=== PATIENT | male | born 1945 | race African-American/Black ===

== ENCOUNTER 2018-01-01 20:18 | Inpatient (IN) | payer MEDICARE, OTHER ==
[~2018-01-01] VITALS: Ht 170.2 cm; Wt 62.8 kg
[2018-01-01 21:00] VITALS: BP 113/91
[2018-01-01 21:06] LABS: BASOPHILS % (AUTO) 1.2 % (0.0-2.0); EOSINOPHILS % (AUTO) 1.7 % (0.0-3.0); HEMATOCRIT 49.3 % (42.0-52.0); HEMOGLOBIN 16.4 G/DL (14.2-18.0); LYMPHOCYTES % (AUTO) 20.9 % (20.0-45.0); MEAN CORPUSCULAR VOLUME 91 FL (80-99); MONOCYTES % (AUTO) 8.2 % (1.0-10.0); PLATELET COUNT 167 K/UL (150-450); RED BLOOD COUNT 5.43 M/UL (4.70-6.10); RED CELL DISTRIBUTION WIDTH 13.6 % (11.6-14.8); WHITE BLOOD COUNT 4.5 K/UL (4.8-10.8)
[2018-01-01] MEDS ORDERED: NS 1000ml 1,900 ML IVLG ONE (21:15)
[2018-01-01] MEDS ORDERED: cefTRIAXone 1 GM in NS 55 ML IVPB ONE (21:15)
[2018-01-01 21:20] LABS: ANION GAP 14 mmol/L (5-15); BLOOD UREA NITROGEN 58 mg/dL (7-18); CALCIUM 10.6 MG/DL (8.5-10.1); CARBON DIOXIDE 26 MMOL/L (21-32); CHLORIDE 107 MMOL/L (98-107); CREATININE 1.2 MG/DL (0.55-1.30); POTASSIUM 4.1 MMOL/L (3.5-5.1); SODIUM 147 MMOL/L (136-145)
[2018-01-01 21:34] LABS: ALBUMIN 3.6 G/DL (3.4-5.0); CKMB 0.9 NG/ML (0.0-3.6)
[2018-01-01 22:16] LABS: ALANINE AMINOTRANSFERASE 29 U/L (12-78); ALKALINE PHOSPHATASE 84 U/L (46-116); ASPARTATE AMINO TRANSFERASE 48 U/L (15-37); BILIRUBIN,TOTAL 1.2 MG/DL (0.2-1.0); CREATINE KINASE 72 U/L (26-308)
[2018-01-01 22:31] LABS: ALBUMIN/GLOBULIN RATIO 0.4 (1.0-2.7)
[2018-01-01 22:32] LABS: BILIRUBIN,DIRECT 0.2 MG/DL (0.0-0.3)
--- NOTE | 2018-01-01 22:44 | Emergency Room Report ---
History of Present Illness General Chief Complaint: Altered Level of Consciousness Source: Patient, EMS Present Illness HPI Presents by EMS. Apparently he his friend had called EMS. He had generalized weakness for the past day. His friend states he is also concerned that he was altered. Unfortunately, the friend was not here to give this history. The patient denies pain. He denies recent illness. He denies fever or chills. He denies nausea or vomiting. He denies chest pain or shortness of breath. He has no other complaints. Allergies: Coded Allergies: No Known Allergies (Unverified , 01/01/18) Patient History Past Medical History: see triage record, HIV Social History: Denies: smoking, alcohol use, drug use Reviewed Nursing Documentation: PMH: Agreed; PSxH: Agreed Review of Systems All Other Systems: negative except mentioned in HPI Physical Exam Vital Signs Date Time Temp Pulse Resp B/P (MAP) Pulse Ox O2 Delivery O2 Flow Rate FiO2 01/01/18 20:15 120 16 111/77 99 Room Air 01/01/18 21:00 98.1 98.1 Sp02 EP Interpretation: reviewed, normal General Appearance: no apparent distress, alert, GCS 15, non-toxic Head: normocephalic, atraumatic Eyes: bilateral eye normal inspection, bilateral eye PERRL ENT: hearing grossly normal, normal pharynx, no angioedema, normal voice Neck: full range of motion, supple/symm/no masses Respiratory: chest non-tender, lungs clear, normal breath sounds, no respiratory distress, no retraction, no accessory muscle use, speaking full sentences Cardiovascular #1: no edema, tachycardia Gastrointestinal: normal bowel sounds, non tender, soft, non-distended, no guarding, no rebound Rectal: deferred Musculoskeletal: back normal, normal range of motion, swelling - BLE Neurologic: alert, oriented x3, responsive, sensory intact, speech normal, other - Generalized weakness, non-focal Psychiatric: judgement/insight normal, memory normal, mood/affect normal, no suicidal/homicidal ideation Skin: normal color, warm/dry Medical Decision Making Diagnostic Impression: Primary Impression: Dehydration Additional Impressions: Failure to thrive in adult Hypernatremia ER Course This patient is very dehydrated. He has dry mucous membranes as tachycardic. He is also found to be hypernatremic and azotemic. Patient was given IV fluids. He is very cachectic and frail. I'm concerned that this patient may need to be in a detention facility. He is gravely disabled and unable to care for himself. He is admitted for further evaluation and treatment. Laboratory Tests Test 01/01/18 20:50 White Blood Count 4.5 K/UL (4.8-10.8) L Red Blood Count 5.43 M/UL (4.70-6.10) Hemoglobin 16.4 G/DL (14.2-18.0) Hematocrit 49.3 % (42.0-52.0) Mean Corpuscular Volume 91 FL (80-99) Mean Corpuscular Hemoglobin 30.3 PG (27.0-31.0) Mean Corpuscular Hemoglobin Concent 33.3 G/DL (32.0-36.0) Red Cell Distribution Width 13.6 % (11.6-14.8) Platelet Count 167 K/UL (150-450) Mean Platelet Volume 9.1 FL (6.5-10.1) Neutrophils (%) (Auto) 68.0 % (45.0-75.0) Lymphocytes (%) (Auto) 20.9 % (20.0-45.0) Monocytes (%) (Auto) 8.2 % (1.0-10.0) Eosinophils (%) (Auto) 1.7 % (0.0-3.0) Basophils (%) (Auto) 1.2 % (0.0-2.0) Prothrombin Time 10.6 SEC (9.30-11.50) Prothrombin Time INR 1.0 (0.9-1.1) PTT 27 SEC (23-33) Sodium Level 147 MMOL/L (136-145) H Potassium Level 4.1 MMOL/L (3.5-5.1) Chloride Level 107 MMOL/L (98-107) Carbon Dioxide Level 26 MMOL/L (21-32) Anion Gap 14 mmol/L (5-15) Blood Urea Nitrogen 58 mg/dL (7-18) H Creatinine 1.2 MG/DL (0.55-1.30) Estimate Glomerular Filtration Rate mL/min (>60) Glucose Level 106 MG/DL (74-106) Calcium Level 10.6 MG/DL (8.5-10.1) H Total Bilirubin 1.2 MG/DL (0.2-1.0) H Direct Bilirubin 0.2 MG/DL (0.0-0.3) Aspartate Amino Transferase (AST) 48 U/L (15-37) H Alanine Aminotransferase (ALT) 29 U/L (12-78) Alkaline Phosphatase 84 U/L (46-116) Total Creatine Kinase 72 U/L (26-308) Creatine Kinase MB 0.9 NG/ML (0.0-3.6) Creatine Kinase MB Relative Index 1.2 Troponin I 0.047 ng/mL (0.000-0.056) Total Protein 12.5 G/DL (6.4-8.2) H Albumin 3.6 G/DL (3.4-5.0) Globulin 8.9 g/dL Albumin/Globulin Ratio 0.4 (1.0-2.7) L EKG Diagnostic Results Rate: tachycardiac Rhythm: other - S.tachycardia ST Segments: no acute changes Other Impression Bifasicular block Rhythm Strip Diag. Results EP Interpretation: yes Rate: 120's Rhythm: no PVC's, no ectopy, other - S.tachycardia Chest X-Ray Diagnostic Results Chest X-Ray Diagnostic Results : Chest X-Ray Ordered: Yes # of Views/Limited/Complete: 1 View Indication: Other EP Interpretation: Yes Interpretation: no consolidation, no effusion, no pneumothorax, no acute cardiopulmonary disease Impression: No acute disease Electronically Signed by: Dyan CT/MRI/US Diagnostic Results CT/MRI/US Diagnostic Results : Imaging Test Ordered: CT head Impression No acute findings. See official report. Last Vital Signs Date Time Temp Pulse Resp B/P (MAP) Pulse Ox O2 Delivery O2 Flow Rate FiO2 01/01/18 21:00 98.1 124 16 113/91 99 Room Air 98.1 Disposition: ADMITTED INPATIENT Condition: Serious Referrals: NOT CHOSEN IPA/,REFERRING (PCP) SEJAL SON D.O. Jan 01, 2018 22:44
[2018-01-01 23:00] VITALS: BP 137/93
[2018-01-02 00:44] VITALS: BP 133/99
[2018-01-02 01:20] VITALS: BP 131/94
[2018-01-02 08:00] VITALS: BP 121/79
--- NOTE | 2018-01-02 08:55 | History & Physical ---
History and Physical History & Physicial patient seen and examined. Dictation completed Brandy Phelps MD Jan 02, 2018 08:55
[2018-01-02] MEDS: Heparin 5000 units/ml inj SUBQ SCH ×2 (09:00→21:30)
[2018-01-02 09:09] LABS: BASOPHILS % (AUTO) 0.9 % (0.0-2.0); EOSINOPHILS % (AUTO) 1.3 % (0.0-3.0); HEMATOCRIT 38.5 % (42.0-52.0); HEMOGLOBIN 13.1 G/DL (14.2-18.0); LYMPHOCYTES % (AUTO) 7.8 % (20.0-45.0); MEAN CORPUSCULAR VOLUME 92 FL (80-99); MONOCYTES % (AUTO) 12.2 % (1.0-10.0); NEUTROPHILS % (AUTO) 77.8 % (45.0-75.0); PLATELET COUNT 150 K/UL (150-450); RED BLOOD COUNT 4.19 M/UL (4.70-6.10); RED CELL DISTRIBUTION WIDTH 13.4 % (11.6-14.8); WHITE BLOOD COUNT 7.9 K/UL (4.8-10.8)
[2018-01-02 09:41] LABS: ALANINE AMINOTRANSFERASE 16 U/L (12-78); ALBUMIN 2.6 G/DL (3.4-5.0); ALBUMIN/GLOBULIN RATIO 0.4 (1.0-2.7); ALKALINE PHOSPHATASE 65 U/L (46-116); ANION GAP 12 mmol/L (5-15); ASPARTATE AMINO TRANSFERASE 31 U/L (15-37); BILIRUBIN,TOTAL 0.9 MG/DL (0.2-1.0); BLOOD UREA NITROGEN 52 mg/dL (7-18); CALCIUM 9.5 MG/DL (8.5-10.1); CARBON DIOXIDE 22 MMOL/L (21-32); CHLORIDE 116 MMOL/L (98-107); CREATININE 1.1 MG/DL (0.55-1.30); POTASSIUM 3.5 MMOL/L (3.5-5.1); SODIUM 150 MMOL/L (136-145)
[2018-01-02 10:00] LABS: CHOLESTEROL 123 MG/DL (< 200); HDL CHOLESTEROL 37 MG/DL (40-60); TRIGLYCERIDES 78 MG/DL (30-150)
--- NOTE | 2018-01-02 10:11 | Diagnostic Imaging Report ---
Indication: Altered mental status Technique: Contiguous 5 mm thick transaxial imaging of the head obtained in a Siemens Sensation [address] scanner. Soft tissue and bone windows generated. Automatic Exposure Control was utilized. Total Dose length Product (DLP): [address] Dose Index Volume (CTDIvol): 0.15, 70.38 mGy Comparison: none Findings: There is mild prominence of the ventricles, basal cisterns, and cerebral sulci consistent with atrophy. Mild, nonspecific, white matter hypoattenuation is noted throughout the brain consistent with chronic small vessel disease. There is no midline shift, edema, acute hemorrhage, mass effect, or abnormal extra-axial fluid collections. Bones and extra osseous soft tissues are unremarkable. Impression: No acute intracranial bleed, mass effect or edema. Mild atrophy of the brain. Nonspecific white matter hypoattenuation probably due to chronic small vessel disease. [facility] has communicated the preliminary results to the Emergency Department. Their findings are largely concordant with this report. The CT scanner at [facility] is accredited by the [employer] and the scans are performed using dose optimization techniques as appropriate to a performed exam including Automatic Exposure control.
--- NOTE | 2018-01-02 11:34 | Diagnostic Imaging Report ---
Indication: Dyspnea Comparison: None A single view chest radiograph was obtained. Findings: Cardiomediastinal appearance is within normal limits for age. Pulmonary vascularity is appropriate. The diaphragmatic contour is smooth and costophrenic angles are sharp. No pleural effusions are identified. The bones are osteopenic. Impression: No acute findings
--- NOTE | 2018-01-02 11:58 | Consultation ---
Consult Note Consult Note asked to eval for renal failure [facility] Complaint: Altered Level of Consciousness Presents by EMS. Apparently he his friend had called EMS. He had generalized weakness for the past day. His friend states he is also concerned that he was altered. Unfortunately, the friend was not here to give this history. The patient denies pain. He denies recent illness. He denies fever or chills. He denies nausea or vomiting. He denies chest pain or shortness of breath. He has no other complaints. examined- data reviewed . Assessment/Plan Dehydration , hemoconcentration leading to high Hgb and Calcium Failure to thrive in adult Hypernatremia HypoAlbuminemia Anemia high troponin I Plan: IV to D5w 100 cc hour gastric support monitor lytes and renal parameters 2D echo nitro TALAT Dyer Jan 02, 2018 11:58
[2018-01-02 12:00] VITALS: BP 140/69
--- NOTE | 2018-01-02 13:00 | History and Physical Report ---
DATE OF ADMISSION: 01/01/2018 SOURCE OF INFORMATION: EMR. HISTORY OF PRESENT ILLNESS: The patient is a 72-year-old male, who was transferred at the request of his roommate. The patient is poor historian. He is delirious, therefore this is limited source of information. Per the ER note, the patient's friend/roommate has been consulted regarding the changes in his level of consciousness for the patient. The patient had been found to have couple of sacral wounds with multiple At the time of evaluation, the patient is AO x1. Poor historian. FAMILY HISTORY: Unobtainable. REVIEW OF SYSTEMS: Limited, however, negative for chest pain. Negative for shortness of breath. Negative for seizure activity. Negative for bleeding. SOCIAL HISTORY: Unknown. ALLERGIES: NKDA. MEDICATIONS: Current hospital medications including but not limited to heparin subcutaneous 5000 b.i.d., Protonix PHYSICAL EXAMINATION: VITAL SIGNS: Blood pressure 140/80, temperature 98.2, respiratory rate 18, pulse oximetry 100% on room air. HEAD AND NECK: Atraumatic and normocephalic. CHEST: Clear to auscultation. No wheezing. No crackles. HEART: S1 and S2. Regular rate and rhythm. Tachycardic. ABDOMEN: Soft. No organomegaly. MUSCULOSKELETAL: Atrophied musculature. No edema. NEUROLOGIC: Awake and alert x1. LABORATORY DATA: On 01/01/2018, WBC 4.5, hemoglobin 16.4, platelet of 167,000. Sodium 147, potassium 4.1, BUN 58, creatinine 1.2, total bilirubin of 1.2, AST of 48, and total protein of 12.5. ASSESSMENT: 1. Acute encephalopathy. 2. Dehydration. 3. Hypernatremia. 4. Abnormal LFT. 5. Hyperproteinemia. 6. Lack of capacity of making medical decisions. 7. GI and DVT prophylaxis. PLAN OF CARE: We will continue with hydration. We will obtain abdominal ultrasound. grey roll worker to locate next of kin. Okay to restrain. Psychiatric to evaluate the capacity for making decisions. Brandy Phelps M.D. DR: Emiliana JOB#: [id number] CC: MAC
--- NOTE | 2018-01-02 13:23 | Cardiac Electrophysiology PN ---
Subjective Subjective [id number]. HIV, Tachy, troponin leak, Dehydration. DW RN Objective Last 24 Hour Vital Signs Date Time Temp Pulse Resp B/P (MAP) Pulse Ox O2 Delivery O2 Flow Rate FiO2 01/02/18 08:00 123 01/02/18 08:00 97.9 106 20 121/79 96 Room Air 97.9 01/02/18 04:00 124 01/02/18 02:00 125 01/02/18 01:20 98.1 120 22 131/94 99 Room Air 98.1 01/02/18 01:10 98.2 119 16 133/99 100 Room Air 98.2 01/02/18 00:44 98.2 119 16 133/99 100 Room Air 98.2 01/01/18 23:00 98.7 115 18 137/93 99 Room Air 98.7 01/01/18 21:00 98.1 124 16 113/91 99 Room Air 98.1 01/01/18 20:15 120 16 111/77 99 Room Air Intake and Output 01/01/18 01/02/18 19:00 07:00 Intake Total 0 ml Balance 0 ml Intake Oral 0 ml Laboratory Tests Test 01/01/18 20:50 01/02/18 00:15 01/02/18 08:40 White Blood Count 4.5 K/UL (4.8-10.8) L 7.9 K/UL (4.8-10.8) # Red Blood Count 5.43 M/UL (4.70-6.10) 4.19 M/UL (4.70-6.10) L Hemoglobin 16.4 G/DL (14.2-18.0) 13.1 G/DL (14.2-18.0) L Hematocrit 49.3 % (42.0-52.0) 38.5 % (42.0-52.0) L Mean Corpuscular Volume 91 FL (80-99) 92 FL (80-99) Mean Corpuscular Hemoglobin 30.3 PG (27.0-31.0) 31.4 PG (27.0-31.0) H Mean Corpuscular Hemoglobin Concent 33.3 G/DL (32.0-36.0) 34.1 G/DL (32.0-36.0) Red Cell Distribution Width 13.6 % (11.6-14.8) 13.4 % (11.6-14.8) Platelet Count 167 K/UL (150-450) 150 K/UL (150-450) Mean Platelet Volume 9.1 FL (6.5-10.1) 10.1 FL (6.5-10.1) Neutrophils (%) (Auto) 68.0 % (45.0-75.0) 77.8 % (45.0-75.0) H Lymphocytes (%) (Auto) 20.9 % (20.0-45.0) 7.8 % (20.0-45.0) L Monocytes (%) (Auto) 8.2 % (1.0-10.0) 12.2 % (1.0-10.0) H Eosinophils (%) (Auto) 1.7 % (0.0-3.0) 1.3 % (0.0-3.0) Basophils (%) (Auto) 1.2 % (0.0-2.0) 0.9 % (0.0-2.0) Prothrombin Time 10.6 SEC (9.30-11.50) Prothromb Time International Ratio 1.0 (0.9-1.1) Activated Partial Thromboplast Time 27 SEC (23-33) Sodium Level 147 MMOL/L (136-145) H 150 MMOL/L (136-145) H Potassium Level 4.1 MMOL/L (3.5-5.1) 3.5 MMOL/L (3.5-5.1) Chloride Level 107 MMOL/L (98-107) 116 MMOL/L (98-107) H Carbon Dioxide Level 26 MMOL/L (21-32) 22 MMOL/L (21-32) Anion Gap 14 mmol/L (5-15) 12 mmol/L (5-15) Blood Urea Nitrogen 58 mg/dL (7-18) H 52 mg/dL (7-18) H Creatinine 1.2 MG/DL (0.55-1.30) 1.1 MG/DL (0.55-1.30) Estimat Glomerular Filtration Rate mL/min (>60) mL/min (>60) Glucose Level 106 MG/DL (74-106) 98 MG/DL (74-106) Calcium Level 10.6 MG/DL (8.5-10.1) H 9.5 MG/DL (8.5-10.1) Total Bilirubin 1.2 MG/DL (0.2-1.0) H 0.9 MG/DL (0.2-1.0) Direct Bilirubin 0.2 MG/DL (0.0-0.3) Aspartate Amino Transf (AST/SGOT) 48 U/L (15-37) H 31 U/L (15-37) Alanine Aminotransferase (ALT/SGPT) 29 U/L (12-78) 16 U/L (12-78) Alkaline Phosphatase 84 U/L (46-116) 65 U/L (46-116) Total Creatine Kinase 72 U/L (26-308) Creatine Kinase MB 0.9 NG/ML (0.0-3.6) Creatine Kinase MB Relative Index 1.2 Troponin I 0.047 ng/mL (0.000-0.056) 0.072 ng/mL (0.000-0.056) Total Protein 12.5 G/DL (6.4-8.2) H 9.5 G/DL (6.4-8.2) H Albumin 3.6 G/DL (3.4-5.0) 2.6 G/DL (3.4-5.0) L Globulin 8.9 g/dL 6.9 g/dL Albumin/Globulin Ratio 0.4 (1.0-2.7) L 0.4 (1.0-2.7) L Ammonia 14 umol/L (11-32) Hemoglobin A1c 5.4 % (4.3-6.0) C-Reactive Protein, Quantitative 2.9 mg/dL (0.00-0.90) H Triglycerides Level 78 MG/DL (30-150) Cholesterol Level 123 MG/DL (< 200) LDL Cholesterol 82 mg/dL (<100) HDL Cholesterol 37 MG/DL (40-60) L Cholesterol/HDL Ratio 3.3 (3.3-4.4) Harris Pike MD Jan 02, 2018 13:23
[2018-01-02] MEDS: Aspirin Baby 81mg ORAL SCH (13:31)
[2018-01-02] MEDS: Nitroglycerin Patch 0.4mg TDERMAL SCH (13:33)
[2018-01-02] MEDS ORDERED: Haloperidol 5mg/ml Inj IM PRN ×2 (14:45→17:00)
[2018-01-02] MEDS ORDERED: LORazepam Inj 2mg/ml 1ml IM PRN ×2 (14:45→17:00)
[2018-01-02 16:00] VITALS: BP 117/75
[2018-01-02 20:00] VITALS: BP 128/76
--- NOTE | 2018-01-02 23:15 | Consultation ---
DATE OF CONSULTATION: 01/02/2018 CARDIOLOGY CONSULTATION REFERRING PHYSICIAN: Brandy Phelps M.D. REASON FOR CONSULTATION: Lower extremity edema, tachycardia, and elevated troponin. HISTORY OF PRESENT ILLNESS: The patient is a 72-year-old , homeless gentleman, who was brought in to the hospital for altered level of consciousness. The patient denied any chest pain or shortness of breath. However, had elevated troponin with bilateral lower extremity edema. The patient was felt to be also tachycardic, dehydrated, cachectic, and very frail. The patient was started on IV fluid and a Cardiology consultation was obtained for further evaluation and management. PAST MEDICAL HISTORY: As mentioned above. SOCIAL HISTORY: smoker, drinking alcohol, and using IV drugs. FAMILY HISTORY: Noncontributory. REVIEW OF SYSTEMS: Negative other than what was mentioned in the history of present illness. PHYSICAL EXAMINATION: VITAL SIGNS: Show blood pressure of 121/79, pulse 120, respirations 18, and he is afebrile. HEAD AND NECK: Shows no JVD. LUNGS: Clear. CARDIOVASCULAR: Shows tachycardic. S1 and S2 with no gallop or murmur. ABDOMEN: Soft. EXTREMITIES: A 1+ pitting edema. LABORATORY AND DIAGNOSTIC DATA: His EKG showed sinus tachycardia with right bundle-branch block and left ventricular hypertrophy and repolarization abnormality. His labs show white count 7.9, hemoglobin 13.1, hematocrit 38.5, and platelet count of 150,000. Sodium 150, potassium 3.5, BUN of 52, creatinine 1.1, and glucose of 98. Troponin of 0.047 and 0.072. ASSESSMENT AND PLAN: 1. Troponin elevation. The first troponin was negative. Second troponin is mildly elevated. This is likely due to the patient's renal failure with sodium 150 and BUN and creatinine of 52/1.1. The patient will be hydrated. Hopefully, we will also get an echocardiogram to evaluate for ejection fraction and wall motion abnormality. 2. Tachycardia due to sinus tachycardia with no evidence of atrial fibrillation likely due to dehydration. 3. Hypernatremia and azotemia on intravenous fluids per Dr. Phelps. 4. Human immunodeficiency virus positive. Thank you very much, Dr. Phepls for allowing me to participate in the care of this patient. Please do not hesitate to contact me for any questions regarding my evaluation. Harris Pike M.D. DR: Terell JOB#: [id number] CC:
[2018-01-03] VITALS: BP 91/58
[2018-01-03 04:00] VITALS: BP 95/58
--- NOTE | 2018-01-03 07:28 | General Progress Note ---
Assessment/Plan Status: stable Assessment/Plan 1. Acute encephalopathy. 2. abnormal Troponin 3. Hypernatremia. 4. Abnormal LFT. 5. Hyperproteinemia. 6. Lack of capacity of making medical decisions. 7. GI and DVT prophylaxis. Plan: Restrain PRN, follow Psych input Current IV fluid follow Trop trend pending echo check BNP Subjective ROS Limited/Unobtainable: Yes - lethargic Allergies: Coded Allergies: No Known Allergies (Unverified , 01/01/18) Objective Last 24 Hour Vital Signs Date Time Temp Pulse Resp B/P (MAP) Pulse Ox O2 Delivery O2 Flow Rate FiO2 01/03/18 04:00 98.0 118 17 95/58 97 Room Air 98.0 01/03/18 04:00 115 01/03/18 00:00 111 01/03/18 00:00 98.0 115 16 91/58 99 Room Air 98.0 01/02/18 20:00 97.6 82 16 128/76 96 Room Air 97.6 01/02/18 20:00 112 01/02/18 18:44 116 01/02/18 16:00 97.3 117 21 117/75 99 Room Air 97.3 01/02/18 13:33 140/69 01/02/18 12:00 97.7 79 20 140/69 97 Room Air 97.7 01/02/18 08:00 123 01/02/18 08:00 97.9 106 20 121/79 96 Room Air 97.9 Intake and Output 01/02/18 01/03/18 19:00 07:00 Intake Total 340 ml 800 ml Balance 340 ml 800 ml Intake Oral 240 ml IV Total 100 ml 800 ml # Voids 2 1 # Bowel Movements 1 Laboratory Tests 01/02/18 08:40: White Blood Count 7.9#, Red Blood Count 4.19L, Hemoglobin 13.1L, Hematocrit 38.5L, Mean Corpuscular Volume 92, Mean Corpuscular Hemoglobin 31.4H, Mean Corpuscular Hemoglobin Concent 34.1, Red Cell Distribution Width 13.4, Platelet Count 150, Mean Platelet Volume 10.1, Neutrophils (%) (Auto) 77.8H, Lymphocytes (%) (Auto) 7.8L, Monocytes (%) (Auto) 12.2H, Eosinophils (%) (Auto) 1.3, Basophils (%) (Auto) 0.9, Sodium Level 150H, Potassium Level 3.5, Chloride Level 116H, Carbon Dioxide Level 22, Anion Gap 12, Blood Urea Nitrogen 52H, Creatinine 1.1, Estimat Glomerular Filtration Rate , Glucose Level 98, Hemoglobin A1c 5.4, Calcium Level 9.5, Total Bilirubin 0.9, Aspartate Amino Transf (AST/SGOT) 31, Alanine Aminotransferase (ALT/SGPT) 16, Alkaline Phosphatase 65, Troponin I 0.072H, C-Reactive Protein, Quantitative 2.9H, Total Protein 9.5H, Albumin 2.6L, Globulin 6.9, Albumin/Globulin Ratio 0.4L, Triglycerides Level 78, Cholesterol Level 123, LDL Cholesterol 82, HDL Cholesterol 37L, Cholesterol/HDL Ratio 3.3 Height (Feet): 5 Height (Inches): 7.00 Weight (Pounds): 140 General Appearance: WD/WN, agitated, cachetic, other EENT: PERRL/EOMI Neck: supple Cardiovascular: normal rate Respiratory/Chest: lungs clear Abdomen: soft Extremities: non-tender, other - atrophied Neurologic: disoriented Brandy Phelps MD Jan 03, 2018 07:28
[2018-01-03 08:00] VITALS: BP 104/70
[2018-01-03 08:23] LABS: BASOPHILS % (AUTO) 0.7 % (0.0-2.0); HEMATOCRIT 34.1 % (42.0-52.0); HEMOGLOBIN 12.1 G/DL (14.2-18.0); LYMPHOCYTES % (AUTO) 16.9 % (20.0-45.0); MEAN CORPUSCULAR VOLUME 91 FL (80-99); MONOCYTES % (AUTO) 14.6 % (1.0-10.0); NEUTROPHILS % (AUTO) 65.9 % (45.0-75.0); PLATELET COUNT 113 K/UL (150-450); RED BLOOD COUNT 3.75 M/UL (4.70-6.10); RED CELL DISTRIBUTION WIDTH 13.4 % (11.6-14.8)
[2018-01-03 08:41] LABS: APPEARANCE,URINE SLIGHTLY CLOUDY; BILIRUBIN, URINE NEGATIVE (NEGATIVE); COLOR,URINE YELLOW; GLUCOSE, URINE (UA) NEGATIVE (NEGATIVE); KETONES,URINE 1+ (NEGATIVE); NITRITE,URINE NEGATIVE (NEGATIVE); PH,URINE 8 (4.5-8.0); PROTEIN,URINE 2+ (NEGATIVE); UROBILINOGEN,URINE NORMAL MG/DL (0.0-1.0)
[2018-01-03 08:42] LABS: LEUKOCYTE ESTERASE ,URINE 3+ (NEGATIVE)
[2018-01-03] MEDS: Heparin 5000 units/ml inj SUBQ SCH ×2 (09:00→20:45)
[2018-01-03 09:22] LABS: ALANINE AMINOTRANSFERASE 22 U/L (12-78); ALBUMIN 2.3 G/DL (3.4-5.0); ALBUMIN/GLOBULIN RATIO 0.4 (1.0-2.7); ALKALINE PHOSPHATASE 54 U/L (46-116); ANION GAP 8 mmol/L (5-15); ASPARTATE AMINO TRANSFERASE 39 U/L (15-37); BILIRUBIN,DIRECT 0.4 MG/DL (0.0-0.3); BILIRUBIN,TOTAL 1.1 MG/DL (0.2-1.0); BLOOD UREA NITROGEN 38 mg/dL (7-18); CARBON DIOXIDE 24 MMOL/L (21-32); CHLORIDE 118 MMOL/L (98-107); CREATINE KINASE 217 U/L (26-308); FERRITIN 873 NG/ML (8-388); GAMMA GLUTAMYL TRANSPEPTIDASE 14 U/L (5-85); PHOSPHORUS 2.9 MG/DL (2.5-4.9); POTASSIUM 3.1 MMOL/L (3.5-5.1); SODIUM 150 MMOL/L (136-145)
[2018-01-03] MEDS: Aspirin Baby 81mg ORAL SCH (09:28)
[2018-01-03 10:03] LABS: % IRON SATURATION 29 % (15-50); IRON 34 ug/dL (50-175); TOTAL IRON BINDING CAPACITY 116 ug/dL (250-450)
--- NOTE | 2018-01-03 11:56 | Diagnostic Imaging Report ---
Indication:Abdominal pain Technique: Grayscale and duplex Doppler imaging of the abdomen performed. Comparison: None Findings: The patient was combative and as such the study is limited. There are tiny cysts in the right kidney measuring less than 1 cm. There is no hydronephrosis. Aorta is normal caliber. CBD is 3 mm. Gallbladder is grossly unremarkable. Liver not well imaged. Pancreas and spleen not well imaged. No free fluid appreciated. IMPRESSION: Limited study. No obvious acute abnormality. Tiny cysts within the right kidney.
[2018-01-03 12:00] VITALS: BP 120/80
[2018-01-03] MEDS ORDERED: Potassium Chloride 40 MEQ in Sodium Chloride 500ML 550 ML IVPB ONE (12:00)
--- NOTE | 2018-01-03 12:33 | Nephrology Progress Note ---
Assessment/Plan Problem List: (1) Dehydration (2) Hypernatremia (3) Failure to thrive in adult (4) Anemia (5) Elevated troponin I level Assessment Dehydration , hemoconcentration leading to high Hgb and Calcium Failure to thrive in adult Hypernatremia HypoAlbuminemia Anemia high troponin I Plan Plan: IV to D5w 100 cc hour gastric support monitor lytes and renal parameters 2D echo nitro asa Subjective ROS Limited/Unobtainable: No Constitutional: Reports: malaise Objective Objective Last 24 Hour Vital Signs Date Time Temp Pulse Resp B/P (MAP) Pulse Ox O2 Delivery O2 Flow Rate FiO2 01/03/18 08:00 98.0 116 17 104/70 98 Room Air 98.0 01/03/18 08:00 117 01/03/18 04:00 98.0 118 17 95/58 97 Room Air 98.0 01/03/18 04:00 115 01/03/18 00:00 111 01/03/18 00:00 98.0 115 16 91/58 99 Room Air 98.0 01/02/18 20:00 97.6 82 16 128/76 96 Room Air 97.6 01/02/18 20:00 112 01/02/18 18:44 116 01/02/18 16:00 97.3 117 21 117/75 99 Room Air 97.3 01/02/18 13:33 140/69 Intake and Output 01/02/18 01/03/18 19:00 07:00 Intake Total 340 ml 800 ml Balance 340 ml 800 ml Intake Oral 240 ml IV Total 100 ml 800 ml # Voids 2 1 # Bowel Movements 1 Laboratory Tests 01/03/18 07:45: White Blood Count 5.0, Red Blood Count 3.75L, Hemoglobin 12.1L, Hematocrit 34.1L , Mean Corpuscular Volume 91, Mean Corpuscular Hemoglobin 32.2H, Mean Corpuscular Hemoglobin Concent 35.4, Red Cell Distribution Width 13.4, Platelet Count 113L, Mean Platelet Volume 9.7, Neutrophils (%) (Auto) 65.9, Lymphocytes ( %) (Auto) 16.9L, Monocytes (%) (Auto) 14.6H, Eosinophils (%) (Auto) 2.0, Basophils (%) (Auto) 0.7, Urine Color Yellow, Urine Appearance Slightly cloudy, Urine pH 8, Urine Specific [place] 1.015, Urine Protein 2+H, Urine Glucose (UA) Negative, Urine Ketones 1+H, Urine Occult Blood 3+H, Urine Nitrite Negative, Urine Bilirubin Negative, Urine Urobilinogen Normal, Urine Leukocyte Esterase 3+ H, Urine RBC 2-4H, Urine WBC 60-80H, Urine Squamous Epithelial Cells Occasional , Urine Bacteria Few, Sodium Level 150H, Potassium Level 3.1L, Chloride Level 118H, Carbon Dioxide Level 24, Anion Gap 8, Blood Urea Nitrogen 38H, Creatinine 1.0, Estimat Glomerular Filtration Rate , Glucose Level 112H, Uric Acid 9.4H, Calcium Level 9.0, Phosphorus Level 2.9, Magnesium Level 2.0, Iron Level 34L, Total Iron Binding Capacity 116L, Percent Iron Saturation 29, Unsaturated Iron Binding 82L, Ferritin 873H, Total Bilirubin 1.1H, Direct Bilirubin 0.4H, Gamma Glutamyl Transpeptidase 14, Aspartate Amino Transf (AST/SGOT) 39H, Alanine Aminotransferase (ALT/SGPT) 22, Alkaline Phosphatase 54, Total Creatine Kinase 217, Troponin I 0.065H, Pro-B-Type Natriuretic Peptide 372H, Total Protein 8.3H , Albumin 2.3L, Globulin 6.0, Albumin/Globulin Ratio 0.4L, Vitamin B12 Level 1008H, Folate 4.2L Height (Feet): 5 Height (Inches): 7.00 Weight (Pounds): 140 TALAT GALVIN Jan 03, 2018 12:33
[2018-01-03] MEDS: Nitroglycerin Patch 0.4mg TDERMAL SCH (13:55)
--- NOTE | 2018-01-03 14:32 | Cardiac Electrophysiology PN ---
Assessment/Plan Assessment/Plan 1. Troponin elevation. The first troponin was negative. second and third ones 0.072/0.065 This is likely due to the patient's renal failure with sodium 150 and BUN and creatinine of 52/1.1. The patient will be hydrated. Echocardiogram showed EF 65% ECG Bifascicular block.No CP 2. Tachycardia due to sinus tachycardia with no evidence of atrial fibrillation likely due to dehydration. 3. RBBB and LAFB. 4. Hypernatremia and azotemia on intravenous fluids per Dr. Phelps. 5. Human immunodeficiency virus positive. KJ RN Subjective Subjective Alert in NAD.No CP. HR in 100s Objective Last 24 Hour Vital Signs Date Time Temp Pulse Resp B/P (MAP) Pulse Ox O2 Delivery O2 Flow Rate FiO2 01/03/18 13:55 120/80 01/03/18 12:00 104 01/03/18 12:00 98.6 104 18 120/80 98 Room Air 98.6 01/03/18 08:00 98.0 116 17 104/70 98 Room Air 98.0 01/03/18 08:00 117 01/03/18 04:00 98.0 118 17 95/58 97 Room Air 98.0 01/03/18 04:00 115 01/03/18 00:00 111 01/03/18 00:00 98.0 115 16 91/58 99 Room Air 98.0 01/02/18 20:00 97.6 82 16 128/76 96 Room Air 97.6 01/02/18 20:00 112 01/02/18 18:44 116 01/02/18 16:00 97.3 117 21 117/75 99 Room Air 97.3 Intake and Output 01/02/18 01/03/18 19:00 07:00 Intake Total 340 ml 800 ml Balance 340 ml 800 ml Intake Oral 240 ml IV Total 100 ml 800 ml # Voids 2 1 # Bowel Movements 1 Laboratory Tests Test 01/03/18 07:45 White Blood Count 5.0 K/UL (4.8-10.8) Red Blood Count 3.75 M/UL (4.70-6.10) L Hemoglobin 12.1 G/DL (14.2-18.0) L Hematocrit 34.1 % (42.0-52.0) L Mean Corpuscular Volume 91 FL (80-99) Mean Corpuscular Hemoglobin 32.2 PG (27.0-31.0) H Mean Corpuscular Hemoglobin Concent 35.4 G/DL (32.0-36.0) Red Cell Distribution Width 13.4 % (11.6-14.8) Platelet Count 113 K/UL (150-450) L Mean Platelet Volume 9.7 FL (6.5-10.1) Neutrophils (%) (Auto) 65.9 % (45.0-75.0) Lymphocytes (%) (Auto) 16.9 % (20.0-45.0) L Monocytes (%) (Auto) 14.6 % (1.0-10.0) H Eosinophils (%) (Auto) 2.0 % (0.0-3.0) Basophils (%) (Auto) 0.7 % (0.0-2.0) Urine Color Yellow Urine Appearance Slightly cloudy Urine pH 8 (4.5-8.0) Urine Specific [place] 1.015 (1.005-1.035) Urine Protein 2+ (NEGATIVE) H Urine Glucose (UA) Negative (NEGATIVE) Urine Ketones 1+ (NEGATIVE) H Urine Occult Blood 3+ (NEGATIVE) H Urine Nitrite Negative (NEGATIVE) Urine Bilirubin Negative (NEGATIVE) Urine Urobilinogen Normal MG/DL (0.0-1.0) Urine Leukocyte Esterase 3+ (NEGATIVE) H Urine RBC 2-4 /HPF (0 - 0) H Urine WBC 60-80 /HPF (0 - 0) H Urine Squamous Epithelial Cells Occasional /LPF Urine Bacteria Few /HPF (NONE) Sodium Level 150 MMOL/L (136-145) H Potassium Level 3.1 MMOL/L (3.5-5.1) L Chloride Level 118 MMOL/L (98-107) H Carbon Dioxide Level 24 MMOL/L (21-32) Anion Gap 8 mmol/L (5-15) Blood Urea Nitrogen 38 mg/dL (7-18) H Creatinine 1.0 MG/DL (0.55-1.30) Estimat Glomerular Filtration Rate mL/min (>60) Glucose Level 112 MG/DL (74-106) H Uric Acid 9.4 MG/DL (2.6-7.2) H Calcium Level 9.0 MG/DL (8.5-10.1) Phosphorus Level 2.9 MG/DL (2.5-4.9) Magnesium Level 2.0 MG/DL (1.8-2.4) Iron Level 34 ug/dL (50-175) L Total Iron Binding Capacity 116 ug/dL (250-450) L Percent Iron Saturation 29 % (15-50) Unsaturated Iron Binding 82 ug/dL (112-346) L Ferritin 873 NG/ML (8-388) H Total Bilirubin 1.1 MG/DL (0.2-1.0) H Direct Bilirubin 0.4 MG/DL (0.0-0.3) H Gamma Glutamyl Transpeptidase 14 U/L (5-85) Aspartate Amino Transf (AST/SGOT) 39 U/L (15-37) H Alanine Aminotransferase (ALT/SGPT) 22 U/L (12-78) Alkaline Phosphatase 54 U/L (46-116) Total Creatine Kinase 217 U/L (26-308) Troponin I 0.065 ng/mL (0.000-0.056) Pro-B-Type Natriuretic Peptide 372 pg/mL (0-125) H Total Protein 8.3 G/DL (6.4-8.2) H Albumin 2.3 G/DL (3.4-5.0) L Globulin 6.0 g/dL Albumin/Globulin Ratio 0.4 (1.0-2.7) L Vitamin B12 Level 1008 PG/ML (193-986) H Folate 4.2 NG/ML (8.6-58.9) L Objective HEAD AND NECK: Shows no JVD. LUNGS: Clear. CARDIOVASCULAR: Tachycardic S1 and S2 with no gallop or murmur. ABDOMEN: Soft. EXTREMITIES: 1+ pitting edema. Harris Pike MD Jan 03, 2018 14:32
[2018-01-03 16:00] VITALS: BP 124/83
--- NOTE | 2018-01-03 17:42 | Cardiology Report ---
APPROVED REPORT EKG Measurement Heart [id number] Sinus tachycardia Right bundle branch block Left anterior fascicular block Bifascicular block Left ventricular hypertrophy with repolarization abnormality Abnormal ECG
[2018-01-03 20:00] VITALS: BP 119/72
[2018-01-04] VITALS: BP 98/65
[2018-01-04 04:00] VITALS: BP 105/63
[2018-01-04 08:00] VITALS: BP_SYST 104; BP_SYST 132; BP_DIAS 68; BP_DIAS 78
[2018-01-04] MEDS: Heparin 5000 units/ml inj SUBQ SCH ×2 (09:00→21:00)
--- NOTE | 2018-01-04 09:20 | General Progress Note ---
Assessment/Plan Status: stable Assessment/Plan 1. Acute encephalopathy: Resolved 2. abnormal Troponin 3. Hypernatremia. 4. Abnormal LFT. 5. Hyperproteinemia. 6. Lack of capacity of making medical decisions. 7. GI and DVT prophylaxis. Plan: Restrain PRN, follow Psych input DC IV fluid follow Trop trend SW for placement Subjective ROS Limited/Unobtainable: Yes Allergies: Coded Allergies: No Known Allergies (Unverified , 01/01/18) Objective Last 24 Hour Vital Signs Date Time Temp Pulse Resp B/P (MAP) Pulse Ox O2 Delivery O2 Flow Rate FiO2 01/04/18 04:00 91 01/04/18 04:00 98.5 96 20 105/63 99 Room Air 98.5 01/04/18 00:00 99 01/04/18 00:00 98.2 99 20 98/65 98 Room Air 98.2 01/03/18 20:00 107 01/03/18 20:00 98.0 104 20 119/72 95 Room Air 98.0 01/03/18 16:00 97.8 101 16 124/83 97 Room Air 97.8 01/03/18 16:00 101 01/03/18 13:55 120/80 01/03/18 12:00 104 01/03/18 12:00 98.6 104 18 120/80 98 Room Air 98.6 Intake and Output 01/03/18 01/04/18 19:00 07:00 Intake Total 600 ml Output Total 950 ml Balance -350 ml IV Total 600 ml Output Urine Total 950 ml Height (Feet): 5 Height (Inches): 7.00 Weight (Pounds): 140 General Appearance: no apparent distress EENT: PERRL/EOMI Neck: supple Cardiovascular: normal rate Respiratory/Chest: lungs clear Abdomen: soft Extremities: non-tender Neurologic: disoriented Brandy Phelps MD Jan 04, 2018 09:20
[2018-01-04] MEDS: Aspirin Baby 81mg ORAL SCH (09:29)
--- NOTE | 2018-01-04 10:53 | Cardiac Electrophysiology PN ---
Assessment/Plan Assessment/Plan 1. Troponin elevation. The first troponin was negative. second and third ones 0.072/0.065 This is likely due to the patient's renal failure with sodium 150 and BUN and creatinine of 52/1.1. Echocardiogram showed EF 65% ECG Bifascicular block.No CP or SOB. 2. Tachycardia due to sinus tachycardia with no evidence of atrial fibrillation likely due to dehydration. 3. RBBB and LAFB. 4. Hypernatremia and azotemia on intravenous fluids per Dr. Escalante 5. Human immunodeficiency virus positive. KJ RN Subjective Subjective Alert in NAD. No CP or SOB. HR better. Objective Last 24 Hour Vital Signs Date Time Temp Pulse Resp B/P (MAP) Pulse Ox O2 Delivery O2 Flow Rate FiO2 01/04/18 08:00 92 01/04/18 04:00 91 01/04/18 04:00 98.5 96 20 105/63 99 Room Air 98.5 01/04/18 00:00 99 01/04/18 00:00 98.2 99 20 98/65 98 Room Air 98.2 01/03/18 20:00 107 01/03/18 20:00 98.0 104 20 119/72 95 Room Air 98.0 01/03/18 16:00 97.8 101 16 124/83 97 Room Air 97.8 01/03/18 16:00 101 01/03/18 13:55 120/80 01/03/18 12:00 104 01/03/18 12:00 98.6 104 18 120/80 98 Room Air 98.6 Intake and Output 01/03/18 01/04/18 19:00 07:00 Intake Total 600 ml Output Total 950 ml Balance -350 ml IV Total 600 ml Output Urine Total 950 ml Microbiology Date/Time Source Procedure Growth Status 01/03/18 07:45 Urine,Clean Catch Urine Culture - Preliminary Mixed Gram Positive Organism Resulted 01/01/18 23:16 Rectum VRE Culture - Final NO VANCOMYCIN RESISTANT ENTEROCOCCUS ... Complete Objective HEAD AND NECK: No JVD. LUNGS: Clear. CARDIOVASCULAR: Tachycardic S1 and S2 with no gallop or murmur. ABDOMEN: Soft. EXTREMITIES: 1+ pitting edema. Harris Pike MD Jan 04, 2018 10:53
--- NOTE | 2018-01-04 10:58 | Cardiology Report ---
APPROVED REPORT EXAM: Two-dimensional and M-mode echocardiogram with Doppler and color Doppler. INDICATION TACHYCARDIA M-Mode DIMENSIONS IVSd1.8 (0.7-1.1cm)Left Atrium (MM)2.7 (1.6-4.0cm) LVDd3.0 (3.5-5.6cm)Aortic Root3.6 (2.0-3.7cm) PWd1.3 (0.7-1.1cm)Aortic Cusp Exc.2.0 (1.5-2.0cm) IVSs1.8 cm LVDs2.0 (2.5-4.0cm) PWs2.1 cm . Normal left ventricular chamber size, systolic function and wall motion to extent visualized. Left ventricular ejection fraction estimated to be 60-65%. No evidence of left ventricular hypertrophy No evidence of pericardial effusion. All other cardiac chamber sizes are within normal limits. Mildly Focal aortic valve sclerosis with normal cusp excursion. Mildly Thickened mitral valve leaflets with normal excursion. Mitral annulus and aortic root calcification. pulmonic valve not well visualized . Normal tricuspid valve structure. Apical/subcostal views not obtained due to pts resistance . Tricuspid systolic velocities suggests peak right ventricular systolic pressure of 16mmHg.
[2018-01-04 12:00] VITALS: BP 110/70
--- NOTE | 2018-01-04 12:37 | Nephrology Progress Note ---
Assessment/Plan Problem List: (1) Dehydration (2) Hypernatremia (3) Failure to thrive in adult (4) Anemia (5) Elevated troponin I level Assessment Dehydration , hemoconcentration leading to high Hgb and Calcium Failure to thrive in adult Hypernatremia HypoAlbuminemia Anemia high troponin I Plan Plan: No labs today IV to D5w 100 cc hour gastric support monitor lytes and renal parameters 2D echo 65% EjFx nitro asa Subjective ROS Limited/Unobtainable: No Constitutional: Reports: malaise, weakness Objective Objective Last 24 Hour Vital Signs Date Time Temp Pulse Resp B/P (MAP) Pulse Ox O2 Delivery O2 Flow Rate FiO2 01/04/18 08:00 92 01/04/18 04:00 91 01/04/18 04:00 98.5 96 20 105/63 99 Room Air 98.5 01/04/18 00:00 99 01/04/18 00:00 98.2 99 20 98/65 98 Room Air 98.2 01/03/18 20:00 107 01/03/18 20:00 98.0 104 20 119/72 95 Room Air 98.0 01/03/18 16:00 97.8 101 16 124/83 97 Room Air 97.8 01/03/18 16:00 101 01/03/18 13:55 120/80 Intake and Output 01/03/18 01/04/18 19:00 07:00 Intake Total 600 ml Output Total 950 ml Balance -350 ml IV Total 600 ml Output Urine Total 950 ml Height (Feet): 5 Height (Inches): 7.00 Weight (Pounds): 140 Cardiovascular: regular rhythm Respiratory/Chest: decreased breath sounds Abdomen: soft Objective no change TALAT GALVIN Jan 04, 2018 12:37
[2018-01-04] MEDS: Nitroglycerin Patch 0.4mg TDERMAL SCH (15:07)
--- NOTE | 2018-01-04 15:16 | General Progress Note ---
Assessment/Plan Status Narrative encephalopathy lisette rg Subjective Date patient seen: Jan 04, 2018 Neurologic/Psychiatric: Reports: anxiety, depressed, emotional problems Allergies: Coded Allergies: No Known Allergies (Unverified , 01/01/18) Objective Last 24 Hour Vital Signs Date Time Temp Pulse Resp B/P (MAP) Pulse Ox O2 Delivery O2 Flow Rate FiO2 01/04/18 15:07 112/72 01/04/18 12:00 93 01/04/18 12:00 98.6 90 20 110/70 98 Room Air 98.6 01/04/18 08:00 97.7 52 20 132/78 97 Room Air 97.7 01/04/18 08:00 92 01/04/18 04:00 91 01/04/18 04:00 98.5 96 20 105/63 99 Room Air 98.5 01/04/18 00:00 99 01/04/18 00:00 98.2 99 20 98/65 98 Room Air 98.2 01/03/18 20:00 107 01/03/18 20:00 98.0 104 20 119/72 95 Room Air 98.0 01/03/18 16:00 97.8 101 16 124/83 97 Room Air 97.8 01/03/18 16:00 101 Intake and Output 01/03/18 01/04/18 19:00 07:00 Intake Total 600 ml Output Total 950 ml Balance -350 ml IV Total 600 ml Output Urine Total 950 ml Height (Feet): 5 Height (Inches): 7.00 Weight (Pounds): 140 General Appearance: no apparent distress, alert, confused, agitated Sandra Sherwood M.D. Jan 04, 2018 15:16
[2018-01-04 16:00] VITALS: BP 113/88
[2018-01-04 16:52] LABS: PHOSPHORUS 2.7 MG/DL (2.5-4.9)
--- NOTE | 2018-01-04 19:30 | Consultation ---
DATE OF CONSULTATION: 01/03/2018 This is a late entry. CONSULTING PHYSICIAN: Sandra Sherwood M.D. HISTORY OF PRESENT ILLNESS: This is a 72-year-old male with a history of multiple medical problems, who has been admitted to the hospital. The patient was anxious, agitated over the weekend, was confused, poor historian, not able to provide any history. Has waxing and waning consciousness, only alert and oriented to time, self, and place. PAST PSYCHIATRIC HISTORY: No known history of psychotic disorder. PAST MEDICAL HISTORY: Significant for is hypernatremia, failure to thrive, anemia, and elevated troponin level. ALLERGIES: No known drug allergies. SUBSTANCE ABUSE HISTORY: No history of illicit drug use or alcohol. MENTAL STATUS EXAMINATION: The patient is alert and oriented to times self and place. Mood is anxious. Affect is constricted, congruent with mood. Thought process is concrete. Thought content, no suicidal or homicidal ideations. Cognition is impaired. ASSESSMENT: [place] I Encephalopathy. [place] II Deferred. [place] III As above. [place] IV Low. [place] V Global assessment of functioning is 25. PLAN: 1. The patient will be started on risperidone and Haldol IM. 2. Provide the patient with supportive therapy and reality orientation. We will continue to follow and readjust the medications. Sandra Sherwood M.D. DR: Bridger JOB#: [id number] CC:
--- NOTE | 2018-01-04 23:10 | Wound Care Consultation ---
Wound Assessment Wound Assessment #1: Wound Number: 1 Wound Present on Admission: Yes New Wound: No Status Change of Wound: No Wound Location Body Site Modif: mid Wound Location Body Site: sacral Wound Type: pressure ulcer Nina Test: Does not Nina Pressure Ulcer Stage: II - scattered Wound Thickness: Partial Thickness Wound Length: 7.5 Wound Width: 4.0 Wound Depth: 0.1 Percent of Wound [place]/Red: 100 Wound Drainage Description: Serosanguineous Wound Drainage Amount: Scant Wound Drainage Odor: None/Absent Tissue Surrounding Wound: Erythemic Wound General Appearance: Reddened, Draining Wound Assessment #2: Wound Number: 2 Wound Present on Admission: Yes New Wound: No Status Change of Wound: No Wound Location Body Site Modif: right Wound Location Body Site: trochanter Wound Type: pressure ulcer Nina Test: Does not Nina Pressure Ulcer Stage: II - scattered Wound Thickness: Partial Thickness Wound Length: 7.5 Wound Width: 5.5 Wound Depth: 0.1 Percent of Wound [place]/Red: 100 Wound Drainage Description: Serosanguineous Wound Drainage Amount: Scant Wound Drainage Odor: None/Absent Tissue Surrounding Wound: Erythemic Wound General Appearance: Reddened, Draining Wound Assessment #3: Wound Number: 3 Wound Present on Admission: Yes New Wound: No Status Change of Wound: No Wound Location Body Site: perineal area Nina Test: Does not Nina Rashes: Nikole/Yeast Wound Drainage Amount: None Wound Drainage Odor: None/Absent Tissue Surrounding Wound: Erythemic Wound General Appearance: Reddened Wound Comment #1 Sacral area scattered stage II pressure ulcers #2 Right trochanter area scattered stage II pressure ulcer #3 Nikole rash on perineal area Recommendation -Local wound care per protocol -Keep clean and dry -Optimize nutrition -Turn and reposition -Low air loss mattress -Heel protector on both heels -Offload both heels -Assess and f/u accordingly for any changes SUZAN THAKKAR RN Jan 04, 2018 23:10
[2018-01-05] VITALS: BP 102/63
[2018-01-05 04:00] VITALS: BP 99/66
[2018-01-05 08:00] VITALS: BP 141/76
[2018-01-05 08:55] LABS: HEMATOCRIT 31.8 % (42.0-52.0); HEMOGLOBIN 11.4 G/DL (14.2-18.0); MEAN CORPUSCULAR VOLUME 91 FL (80-99); PLATELET COUNT 94 K/UL (150-450); RED BLOOD COUNT 3.49 M/UL (4.70-6.10); RED CELL DISTRIBUTION WIDTH 13.4 % (11.6-14.8); WHITE BLOOD COUNT 4.3 K/UL (4.8-10.8)
[2018-01-05] MEDS: Heparin 5000 units/ml inj SUBQ SCH ×2 (09:00→21:00)
[2018-01-05] MEDS: Aspirin Baby 81mg ORAL SCH (09:03)
[2018-01-05 09:35] LABS: ALANINE AMINOTRANSFERASE 25 U/L (12-78); ALBUMIN 1.9 G/DL (3.4-5.0); ALBUMIN/GLOBULIN RATIO 0.4 (1.0-2.7); ALKALINE PHOSPHATASE 55 U/L (46-116); ANION GAP 8 mmol/L (5-15); ASPARTATE AMINO TRANSFERASE 39 U/L (15-37); BILIRUBIN,TOTAL 0.6 MG/DL (0.2-1.0); BLOOD UREA NITROGEN 19 mg/dL (7-18); CALCIUM 8.2 MG/DL (8.5-10.1); CARBON DIOXIDE 24 MMOL/L (21-32); CHLORIDE 108 MMOL/L (98-107); CREATININE 0.7 MG/DL (0.55-1.30); PHOSPHORUS 2.5 MG/DL (2.5-4.9); POTASSIUM 3.6 MMOL/L (3.5-5.1); SODIUM 140 MMOL/L (136-145)
--- NOTE | 2018-01-05 11:41 | General Progress Note ---
Assessment/Plan Assessment/Plan 1. Acute encephalopathy with chronic dementia 2. abnormal Troponin 3. Hypernatremia, resolved 4. Abnormal LFT. 5. Hyperproteinemia. 6. Lack of capacity of making medical decisions. 7. GI and DVT prophylaxis. assuming care per insurance has severe dementia, refuses full exam not able to make decisions for himself disc w psych Na normal poor intake, refuses meds will request Bioethics: recommend DNR, comfort care dc to snf when bed available Subjective ROS Limited/Unobtainable: Yes Allergies: Coded Allergies: No Known Allergies (Unverified , 01/01/18) Objective Last 24 Hour Vital Signs Date Time Temp Pulse Resp B/P (MAP) Pulse Ox O2 Delivery O2 Flow Rate FiO2 01/05/18 08:05 95 01/05/18 08:00 97.7 72 18 141/76 99 Room Air 97.7 01/05/18 04:00 97 01/05/18 04:00 97.8 95 17 99/66 94 Room Air 97.8 01/05/18 00:00 97.5 103 18 102/63 92 Room Air 97.5 01/05/18 00:00 99 01/04/18 20:00 100 01/04/18 16:00 96 01/04/18 16:00 97.6 98 20 113/88 99 Room Air 97.6 01/04/18 15:07 112/72 01/04/18 12:00 93 01/04/18 12:00 98.6 90 20 110/70 98 Room Air 98.6 Intake and Output 01/04/18 01/05/18 19:00 07:00 Intake Total 240 ml 1100 ml Output Total 800 ml 300 ml Balance -560 ml 800 ml Intake Oral 240 ml IV Total 1100 ml Output Urine Total 800 ml 300 ml Laboratory Tests 01/04/18 15:55: Uric Acid 6.5, Phosphorus Level 2.7, Magnesium Level 1.9, Troponin I 0.025 01/05/18 08:25: Uric Acid 5.3, Phosphorus Level 2.5, Magnesium Level 1.9, Troponin I 0.026, White Blood Count 4.3L, Red Blood Count 3.49L, Hemoglobin 11.4L, Hematocrit 31.8L, Mean Corpuscular Volume 91, Mean Corpuscular Hemoglobin 32.6H, Mean Corpuscular Hemoglobin Concent 35.7, Red Cell Distribution Width 13.4, Platelet Count 94L, Mean Platelet Volume 11.3H, Neutrophils (%) (Auto) , Lymphocytes (%) (Auto) , Monocytes (%) (Auto) , Eosinophils (%) (Auto) , Basophils (%) (Auto) , Differential Total Cells Counted 100, Neutrophils % (Manual) 71, Lymphocytes % ( Manual) 19L, Monocytes % (Manual) 9, Eosinophils % (Manual) 1, Basophils % ( Manual) 0, Band Neutrophils 0, Platelet Estimate DecreasedL, Platelet Morphology Normal, Anisocytosis 1+, Sodium Level 140, Potassium Level 3.6, Chloride Level 108H, Carbon Dioxide Level 24, Anion Gap 8, Blood Urea Nitrogen 19H, Creatinine 0.7, Estimat Glomerular Filtration Rate , Glucose Level 109H, Calcium Level 8.2L, Total Bilirubin 0.6, Aspartate Amino Transf (AST/SGOT) 39H, Alanine Aminotransferase (ALT/SGPT) 25, Alkaline Phosphatase 55, Total Protein 7.1, Albumin 1.9L, Globulin 5.2, Albumin/Globulin Ratio 0.4L Height (Feet): 5 Height (Inches): 7.00 Weight (Pounds): 140 General Appearance: no apparent distress, cachetic Cardiovascular: normal rate Edema: mild edema Christopher Romero MD January 05, 2018 11:41
[2018-01-05] MEDS: Nitroglycerin Patch 0.4mg TDERMAL SCH (13:00)
--- NOTE | 2018-01-05 14:40 | Cardiac Electrophysiology PN ---
Assessment/Plan Assessment/Plan 1. Troponin elevation. The first troponin was negative. second and third ones 0.072/0.065 This is likely due to the patient's renal failure with sodium 150 and BUN and creatinine of 52/1.1. Echocardiogram showed EF 65% ECG Bifascicular block. No CP or SOB. 2. Tachycardia due to sinus tachycardia with no evidence of atrial fibrillation likely due to dehydration. 3. RBBB and LAFB. 4. Hypernatremia and azotemia on intravenous fluids per Dr. Escalante 5. Human immunodeficiency virus positive. KJ RN Off tele now. Will sign off at request of Dr. Romero Subjective Subjective Comfortable in NAD. No CP or SOB.Care assumed by Dr Romero per insurance Objective Last 24 Hour Vital Signs Date Time Temp Pulse Resp B/P (MAP) Pulse Ox O2 Delivery O2 Flow Rate FiO2 01/05/18 08:05 95 01/05/18 08:00 97.7 72 18 141/76 99 Room Air 97.7 01/05/18 04:00 97 01/05/18 04:00 97.8 95 17 99/66 94 Room Air 97.8 01/05/18 00:00 97.5 103 18 102/63 92 Room Air 97.5 01/05/18 00:00 99 01/04/18 20:00 100 01/04/18 16:00 96 01/04/18 16:00 97.6 98 20 113/88 99 Room Air 97.6 01/04/18 15:07 112/72 Intake and Output 01/04/18 01/05/18 19:00 07:00 Intake Total 240 ml 1100 ml Output Total 800 ml 300 ml Balance -560 ml 800 ml Intake Oral 240 ml IV Total 1100 ml Output Urine Total 800 ml 300 ml Laboratory Tests Test 01/04/18 15:55 01/05/18 08:25 Uric Acid 6.5 MG/DL (2.6-7.2) 5.3 MG/DL (2.6-7.2) Phosphorus Level 2.7 MG/DL (2.5-4.9) 2.5 MG/DL (2.5-4.9) Magnesium Level 1.9 MG/DL (1.8-2.4) 1.9 MG/DL (1.8-2.4) Troponin I 0.025 ng/mL (0.000-0.056) 0.026 ng/mL (0.000-0.056) White Blood Count 4.3 K/UL (4.8-10.8) L Red Blood Count 3.49 M/UL (4.70-6.10) L Hemoglobin 11.4 G/DL (14.2-18.0) L Hematocrit 31.8 % (42.0-52.0) L Mean Corpuscular Volume 91 FL (80-99) Mean Corpuscular Hemoglobin 32.6 PG (27.0-31.0) H Mean Corpuscular Hemoglobin Concent 35.7 G/DL (32.0-36.0) Red Cell Distribution Width 13.4 % (11.6-14.8) Platelet Count 94 K/UL (150-450) L Mean Platelet Volume 11.3 FL (6.5-10.1) H Neutrophils (%) (Auto) % (45.0-75.0) Lymphocytes (%) (Auto) % (20.0-45.0) Monocytes (%) (Auto) % (1.0-10.0) Eosinophils (%) (Auto) % (0.0-3.0) Basophils (%) (Auto) % (0.0-2.0) Differential Total Cells Counted 100 Neutrophils % (Manual) 71 % (45-75) Lymphocytes % (Manual) 19 % (20-45) L Monocytes % (Manual) 9 % (1-10) Eosinophils % (Manual) 1 % (0-3) Basophils % (Manual) 0 % (0-2) Band Neutrophils 0 % (0-8) Platelet Estimate Decreased L Platelet Morphology Normal Anisocytosis 1+ Sodium Level 140 MMOL/L (136-145) Potassium Level 3.6 MMOL/L (3.5-5.1) Chloride Level 108 MMOL/L (98-107) H Carbon Dioxide Level 24 MMOL/L (21-32) Anion Gap 8 mmol/L (5-15) Blood Urea Nitrogen 19 mg/dL (7-18) H Creatinine 0.7 MG/DL (0.55-1.30) Estimat Glomerular Filtration Rate mL/min (>60) Glucose Level 109 MG/DL (74-106) H Calcium Level 8.2 MG/DL (8.5-10.1) L Total Bilirubin 0.6 MG/DL (0.2-1.0) Aspartate Amino Transf (AST/SGOT) 39 U/L (15-37) H Alanine Aminotransferase (ALT/SGPT) 25 U/L (12-78) Alkaline Phosphatase 55 U/L (46-116) Total Protein 7.1 G/DL (6.4-8.2) Albumin 1.9 G/DL (3.4-5.0) L Globulin 5.2 g/dL Albumin/Globulin Ratio 0.4 (1.0-2.7) L Microbiology Date/Time Source Procedure Growth Status 01/03/18 07:45 Urine,Clean Catch Urine Culture - Preliminary Mixed Gram Positive Organism Resulted Objective HEAD AND NECK: No JVD. LUNGS: Clear. CARDIOVASCULAR: Regular S1 and S2 with no gallop or murmur. ABDOMEN: Soft. EXTREMITIES: 1+ pitting edema. Harris Pike MD January 05, 2018 14:40
[2018-01-05] MEDS: Haloperidol 5mg/ml Inj IM PRN (20:51)
--- NOTE | 2018-01-05 22:45 | General Progress Note ---
Assessment/Plan Assessment/Plan dementia with behavioral dist encephalopathy not able to make decisions lacks capacity poor intake noncompliant recommend DNR, comfort care Subjective Date patient seen: January 05, 2018 Neurologic/Psychiatric: Reports: anxiety, emotional problems Allergies: Coded Allergies: No Known Allergies (Unverified , 01/01/18) Subjective the pt is confused unable to process or understand the info given to him Objective Last 24 Hour Vital Signs Date Time Temp Pulse Resp B/P (MAP) Pulse Ox O2 Delivery O2 Flow Rate FiO2 01/05/18 20:00 98 01/05/18 11:42 89 01/05/18 08:05 95 01/05/18 08:00 97.7 72 18 141/76 99 Room Air 97.7 01/05/18 04:00 97 01/05/18 04:00 97.8 95 17 99/66 94 Room Air 97.8 01/05/18 00:00 97.5 103 18 102/63 92 Room Air 97.5 01/05/18 00:00 99 Intake and Output 01/04/18 01/05/18 19:00 07:00 Intake Total 240 ml 1100 ml Output Total 800 ml 300 ml Balance -560 ml 800 ml Intake Oral 240 ml IV Total 1100 ml Output Urine Total 800 ml 300 ml Laboratory Tests 01/05/18 08:25: White Blood Count 4.3L, Red Blood Count 3.49L, Hemoglobin 11.4L, Hematocrit 31.8L, Mean Corpuscular Volume 91, Mean Corpuscular Hemoglobin 32.6H, Mean Corpuscular Hemoglobin Concent 35.7, Red Cell Distribution Width 13.4, Platelet Count 94L, Mean Platelet Volume 11.3H, Neutrophils (%) (Auto) , Lymphocytes (%) (Auto) , Monocytes (%) (Auto) , Eosinophils (%) (Auto) , Basophils (%) (Auto) , Differential Total Cells Counted 100, Neutrophils % (Manual) 71, Lymphocytes % ( Manual) 19L, Monocytes % (Manual) 9, Eosinophils % (Manual) 1, Basophils % ( Manual) 0, Band Neutrophils 0, Platelet Estimate DecreasedL, Platelet Morphology Normal, Anisocytosis 1+, Sodium Level 140, Potassium Level 3.6, Chloride Level 108H, Carbon Dioxide Level 24, Anion Gap 8, Blood Urea Nitrogen 19H, Creatinine 0.7, Estimat Glomerular Filtration Rate , Glucose Level 109H, Uric Acid 5.3, Calcium Level 8.2L, Phosphorus Level 2.5, Magnesium Level 1.9, Total Bilirubin 0.6, Aspartate Amino Transf (AST/SGOT) 39H, Alanine Aminotransferase (ALT/SGPT) 25, Alkaline Phosphatase 55, Troponin I 0.026, Total Protein 7.1, Albumin 1.9L, Globulin 5.2, Albumin/Globulin Ratio 0.4L Height (Feet): 5 Height (Inches): 7.00 Weight (Pounds): 140 General Appearance: WD/WN, no apparent distress, alert, confused, agitated Sandra Sherwood M.D. January 05, 2018 22:45
[2018-01-06] MEDS: Haloperidol 5mg/ml Inj IM PRN (07:30)
[2018-01-06] MEDS: Aspirin Baby 81mg ORAL SCH (09:00)
[2018-01-06] MEDS: Heparin 5000 units/ml inj SUBQ SCH (09:00)
--- NOTE | 2018-01-06 12:12 | General Progress Note ---
Assessment/Plan Assessment/Plan dementia with behavioral dist encephalopathy not able to make decisions lacks capacity poor intake noncompliant recommend DNR, comfort care Subjective Date patient seen: January 06, 2018 Neurologic/Psychiatric: Reports: anxiety, emotional problems Allergies: Coded Allergies: No Known Allergies (Unverified , 01/01/18) Subjective the pts mental condition is unchanged. the pt is confused unable to process or understand the info given to him Objective Last 24 Hour Vital Signs Date Time Temp Pulse Resp B/P (MAP) Pulse Ox O2 Delivery O2 Flow Rate FiO2 01/06/18 04:00 98 01/06/18 00:00 109 01/05/18 20:00 98 Intake and Output 01/05/18 01/06/18 19:00 07:00 Output Total 300 ml Balance -300 ml Output Urine Total 300 ml # Voids 2 5 Height (Feet): 5 Height (Inches): 7.00 Weight (Pounds): 140 General Appearance: WD/WN, no apparent distress, alert, confused Sandra Sherwood M.D. January 06, 2018 12:12
--- NOTE | 2018-01-06 12:49 | General Progress Note ---
Assessment/Plan Assessment/Plan 1. Acute encephalopathy with chronic dementia 2. abnormal Troponin 3. Hypernatremia, resolved 4. Abnormal LFT. 5. Hyperproteinemia. 6. Lack of capacity of making medical decisions. 7. GI and DVT prophylaxis. refuses exam has severe dementia not able to make decisions for himself abraham bryan, RN, continuous pillowcase cutter poor intake, refuses meds await Bioethics: recommend DNR, comfort care dc to snf when bed available Subjective ROS Limited/Unobtainable: Yes Allergies: Coded Allergies: No Known Allergies (Unverified , 01/01/18) Objective Last 24 Hour Vital Signs Date Time Temp Pulse Resp B/P (MAP) Pulse Ox O2 Delivery O2 Flow Rate FiO2 01/06/18 04:00 98 01/06/18 00:00 109 01/05/18 20:00 98 Intake and Output 01/05/18 01/06/18 19:00 07:00 Output Total 300 ml Balance -300 ml Output Urine Total 300 ml # Voids 2 5 Height (Feet): 5 Height (Inches): 7.00 Weight (Pounds): 140 General Appearance: no apparent distress, cachetic Neck: supple Cardiovascular: normal rate Christopher Romero MD January 06, 2018 12:49
[2018-01-06] MEDS: Nitroglycerin Patch 0.4mg TDERMAL SCH (13:00)
--- NOTE | 2018-01-06 15:03 | General Progress Note ---
Progress Note Progress Note Bioethics Family Meeting The Committee met with who is a close friend and housemate of the patient who is unrepresented by family. The patient is a 72 year old [place]reg[place] man HIV + who has never been treated with antiretroviral medications and has declined all treatment. He has developed severe dementia and is combative in refusing all medical attention. He was transported by bait maker to [place] when they were called by the housemate. The patient had a fall and was treated at [facility] for two weeks. He subsequently was seen at [facility] but failed to keep PT appointments. He has been refusing care since admission to [place] and Bioethics Consultation was requested by Dr. Romero. The Committee met at length with the housemate who confirmed that the patient has deteriorated and has refused care. He does not believe patient would want extraordinary life sustaining measures taken if there was no prospect of a better quality of life. He clearly has been refusing the standard of care for HIV for a long time and now may have dementia secondary to his HIV. The Committe was of the opinion that designating this patient DNR/DNI and referring to hospice/long-term [facility] care was appropriate. Christopher Graham M.D. Chair, Bioethics Committee Christopher Graham MD January 06, 2018 15:03
[2018-01-06] MEDS ORDERED: Haloperidol 5mg/ml Inj IM PRN (18:00)
[2018-01-06 20:03] VITALS: BP 123/83
[2018-01-06] MEDS ORDERED: Heparin 5000 units/ml inj SUBQ SCH (21:00)
[2018-01-07 08:00] VITALS: BP 95/70
[2018-01-07] MEDS: Aspirin Baby 81mg ORAL SCH (08:44)
[2018-01-07 12:00] VITALS: BP 108/73
--- NOTE | 2018-01-07 12:04 | General Progress Note ---
Assessment/Plan Status: stable Assessment/Plan dementia with behavioral dist encephalopathy not able to make decisions lacks capacity poor intake noncompliant recommend DNR, comfort care Subjective Date patient seen: January 07, 2018 Neurologic/Psychiatric: Reports: anxiety, emotional problems Allergies: Coded Allergies: No Known Allergies (Unverified , 01/01/18) Subjective the pts mental condition is unchanged. the pt is confused unable to process or understand the info given to him. the pt is disoriented Objective Last 24 Hour Vital Signs Date Time Temp Pulse Resp B/P (MAP) Pulse Ox O2 Delivery O2 Flow Rate FiO2 01/07/18 08:00 97.6 94 18 95/70 100 97.6 01/06/18 20:03 97.8 79 17 123/83 98 97.8 Intake and Output 01/06/18 01/07/18 19:00 07:00 Intake Total 0 ml Balance 0 ml Intake Oral 0 ml # Voids 1 2 # Bowel Movements 1 Height (Feet): 5 Height (Inches): 7.00 Weight (Pounds): 140 General Appearance: WD/WN, no apparent distress, alert, confused Sandra Sherwood M.D. January 07, 2018 12:04
--- NOTE | 2018-01-07 12:44 | General Progress Note ---
Assessment/Plan Assessment/Plan 1. Acute encephalopathy with chronic dementia 2. abnormal Troponin 3. Hypernatremia, resolved 4. Abnormal LFT. 5. Hyperproteinemia. 6. Lack of capacity of making medical decisions. 7. GI and DVT prophylaxis. Bioethics has recommended DNAR/DNI and hospice care refuses exam has severe dementia not able to make decisions for himself abraham knight RN, rifle case repairer, insurance physician advisor eating better, refuses meds dc to snf/hospice when bed available Subjective ROS Limited/Unobtainable: Yes Allergies: Coded Allergies: No Known Allergies (Unverified , 01/01/18) Objective Last 24 Hour Vital Signs Date Time Temp Pulse Resp B/P (MAP) Pulse Ox O2 Delivery O2 Flow Rate FiO2 01/07/18 12:00 98.6 88 17 108/73 99 98.6 01/07/18 08:00 97.6 94 18 95/70 100 97.6 01/06/18 20:03 97.8 79 17 123/83 98 97.8 Intake and Output 01/06/18 01/07/18 19:00 07:00 Intake Total 0 ml Balance 0 ml Intake Oral 0 ml # Voids 1 2 # Bowel Movements 1 Height (Feet): 5 Height (Inches): 7.00 Weight (Pounds): 140 General Appearance: no apparent distress Christopher Romero MD January 07, 2018 12:44
[2018-01-07] MEDS: Nitroglycerin Patch 0.4mg TDERMAL SCH (13:55)
[2018-01-07 16:00] VITALS: BP 113/79
[2018-01-07 20:00] VITALS: BP 107/67
[2018-01-08 00:22] VITALS: BP 106/59
[2018-01-08 04:00] VITALS: BP 105/71
[2018-01-08 08:00] VITALS: BP 105/68
[2018-01-08] MEDS: Aspirin Baby 81mg ORAL SCH (08:41)
--- NOTE | 2018-01-08 11:17 | General Progress Note ---
Assessment/Plan Status: not improved, unchanged Assessment/Plan dementia with behavioral dist encephalopathy not able to make decisions lacks capacity poor intake noncompliant recommend DNR, comfort care Subjective Date patient seen: January 08, 2018 Neurologic/Psychiatric: Reports: anxiety, depressed Allergies: Coded Allergies: No Known Allergies (Unverified , 01/01/18) Subjective the pts mental condition is unchanged. the pt is confused unable to process or understand the info given to him. the pt is disoriented. the pt is refusing the meds and care Objective Last 24 Hour Vital Signs Date Time Temp Pulse Resp B/P (MAP) Pulse Ox O2 Delivery O2 Flow Rate FiO2 01/08/18 08:00 97.7 104 18 105/68 96 Room Air 97.7 01/08/18 04:00 97.3 102 22 105/71 96 97.3 01/08/18 00:22 97.7 98 22 106/59 100 97.7 01/07/18 20:00 97.1 103 20 107/67 98 Room Air 97.1 01/07/18 16:00 97.8 96 18 113/79 99 Room Air 97.8 01/07/18 13:55 108/73 01/07/18 12:00 98.6 88 17 108/73 99 98.6 Intake and Output 01/07/18 01/08/18 19:00 07:00 Intake Total 320 ml Balance 320 ml Intake Oral 120 ml Other 200 ml # Voids 5 1 Height (Feet): 5 Height (Inches): 7.00 Weight (Pounds): 140 General Appearance: no apparent distress, alert, confused Sandra Sherwood M.D. January 08, 2018 11:17
[2018-01-08 12:00] VITALS: BP 110/68
[2018-01-08] MEDS: Nitroglycerin Patch 0.4mg TDERMAL SCH (13:42)
--- NOTE | 2018-01-08 15:33 | Cardiology Report ---
APPROVED REPORT EKG Measurement Heart [id number] Sinus tachycardia Left axis deviation Right bundle branch block Left ventricular hypertrophy with repolarization abnormality Abnormal ECG
[2018-01-08 16:04] VITALS: BP 119/70
[2018-01-08 16:20] VITALS: BP 152/83
[2018-01-09] VITALS: BP 97/65
[2018-01-09 04:00] VITALS: BP 104/71
[2018-01-09 08:00] VITALS: BP 130/103
[2018-01-09] MEDS: Aspirin Baby 81mg ORAL SCH (09:17)
[2018-01-09 12:00] VITALS: BP 111/72
[2018-01-09] MEDS: Nitroglycerin Patch 0.4mg TDERMAL SCH (12:15)
[2018-01-09 16:00] VITALS: BP 108/76
--- NOTE | 2018-01-09 19:54 | Pulmonology Progress Note ---
Assessment/Plan Assessment/Plan 1. Acute encephalopathy with chronic dementia 2. abnormal Troponin 3. Hypernatremia, resolved 4. Abnormal LFT. 5. Hyperproteinemia. 6. Lack of capacity of making medical decisions. 7. GI and DVT prophylaxis. Bioethics has recommended DNAR/DNI and hospice care refuses exam has severe dementia not able to make decisions for himself abraham knight RN, continuous pillowcase cutter, insurance physician advisor eating better, refuses meds dc to snf/hospice when bed available Subjective Constitutional: Reports: no symptoms HEENT: Repors: no symptoms Gastrointestinal/Abdominal: Reports: no symptoms Hematologic: Reports: no symptoms Allergies: Coded Allergies: No Known Allergies (Unverified , 01/01/18) Subjective no complaints toelrating po no getting oob confused, asking if his dog is outside hsi room no cp nv or bleeding Objective Last 24 Hour Vital Signs Date Time Temp Pulse Resp B/P (MAP) Pulse Ox O2 Delivery O2 Flow Rate FiO2 01/09/18 16:00 97.5 98 20 108/76 98 Room Air 97.5 01/09/18 12:15 130/103 01/09/18 12:00 97.3 53 20 111/72 98 97.3 01/09/18 08:00 97.7 100 20 130/103 99 97.7 01/09/18 04:00 98.3 66 20 104/71 100 Room Air 98.3 01/09/18 00:00 98.0 113 20 97/65 98 Room Air 98.0 01/08/18 20:00 Room Air Intake and Output 01/08/18 01/09/18 19:00 07:00 Intake Total 240 ml 300 ml Balance 240 ml 300 ml Intake Oral 240 ml 300 ml # Voids 3 2 General Appearance: cachetic HEENT: atraumatic, anicteric Respiratory/Chest: normal breath sounds Cardiovascular: normal rate, no gallop/murmur Abdomen: soft, non tender, no organomegaly Extremities: no cyanosis Skin: no lesions Neurologic/Psychiatric: disoriented Lymphatic: no neck adenopathy Musculoskeletal: normal muscle bulk Current Medications Medications (Trade) Dose Ordered Sig/Sherif Route PRN Reason Start Time Stop Time Status Last Admin Dose Admin Aspirin (ASA) 162 mg DAILY ORAL 01/07/18 09:00 02/01/18 12:59 01/09/18 09:17 Clotrimazole (Lotrimin) 1 applic EVERY 12 HOURS TOPIC 01/06/18 21:00 02/04/18 08:59 01/09/18 09:16 Folic Acid (Folate) 5 mg DAILY ORAL 01/07/18 09:00 02/03/18 08:59 01/09/18 09:17 Haloperidol Lactate (Haldol) 5 mg Q6H PRN IM Agitation 01/06/18 18:00 02/03/18 11:59 Nitroglycerin (Ntg) 1 patch Q24H TDERMAL 01/07/18 13:00 02/01/18 12:59 01/09/18 12:15 Pantoprazole (Protonix) 40 mg BIAC ORAL 01/06/18 16:30 02/01/18 16:29 01/07/18 06:16 Risperidone (RisperDAL) 1 mg BEDTIME ORAL 01/06/18 21:00 02/03/18 20:59 01/08/18 20:50 CRIS TAVAREZ DO January 09, 2018 19:54
[2018-01-09 20:00] VITALS: BP 110/71
[2018-01-10] VITALS (7 sets, daily range): BP systolic 96–116; BP diastolic 64–84
--- NOTE | 2018-01-10 07:05 | Pulmonology Progress Note ---
Assessment/Plan Assessment/Plan 1. Acute encephalopathy with chronic dementia 2. abnormal Troponin 3. Hypernatremia, resolved 4. Abnormal LFT. 5. Hyperproteinemia. 6. Lack of capacity of making medical decisions. 7. GI and DVT prophylaxis. Bioethics has recommended DNAR/DNI and hospice care has severe dementia not able to make decisions for himself abraham knight RN, case resolution specialist, insurance physician advisor eating better, refuses meds dc to snf/hospice when bed available Subjective Constitutional: Reports: no symptoms HEENT: Repors: no symptoms Cardiovascular: Reports: no symptoms Gastrointestinal/Abdominal: Reports: no symptoms Allergies: Coded Allergies: No Known Allergies (Unverified , 01/01/18) Subjective no complaints tolerating po no getting oob confused, but no distress no cp nv or bleeding Objective Last 24 Hour Vital Signs Date Time Temp Pulse Resp B/P (MAP) Pulse Ox O2 Delivery O2 Flow Rate FiO2 01/10/18 04:00 97.5 88 19 104/71 97 97.5 01/10/18 00:00 97.4 109 20 101/70 98 97.4 01/09/18 20:00 97.4 101 20 110/71 98 97.4 01/09/18 16:00 97.5 98 20 108/76 98 Room Air 97.5 01/09/18 12:15 130/103 01/09/18 12:00 97.3 53 20 111/72 98 97.3 01/09/18 08:00 97.7 100 20 130/103 99 97.7 Intake and Output 01/09/18 01/10/18 19:00 07:00 Intake Total 340 ml Balance 340 ml Intake Oral 340 ml # Voids 4 3 General Appearance: cachetic HEENT: atraumatic, anicteric Respiratory/Chest: lungs clear, normal breath sounds Cardiovascular: normal rate, regular rhythm Abdomen: soft, non tender, no organomegaly Extremities: no cyanosis, no clubbing Skin: no rash, no lesions Neurologic/Psychiatric: abnormal gait, alert, responsive Current Medications Medications (Trade) Dose Ordered Sig/Sherif Route PRN Reason Start Time Stop Time Status Last Admin Dose Admin Aspirin (ASA) 162 mg DAILY ORAL 01/07/18 09:00 02/01/18 12:59 01/09/18 09:17 Clotrimazole (Lotrimin) 1 applic EVERY 12 HOURS TOPIC 01/06/18 21:00 02/04/18 08:59 01/09/18 20:35 Folic Acid (Folate) 5 mg DAILY ORAL 01/07/18 09:00 02/03/18 08:59 01/09/18 09:17 Haloperidol Lactate (Haldol) 5 mg Q6H PRN IM Agitation 01/06/18 18:00 02/03/18 11:59 Nitroglycerin (Ntg) 1 patch Q24H TDERMAL 01/07/18 13:00 02/01/18 12:59 01/09/18 12:15 Pantoprazole (Protonix) 40 mg BIAC ORAL 01/06/18 16:30 02/01/18 16:29 01/07/18 06:16 Risperidone (RisperDAL) 1 mg BEDTIME ORAL 01/06/18 21:00 02/03/18 20:59 01/09/18 20:35 CRIS TAVAREZ DO January 10, 2018 07:05
[2018-01-10] MEDS: Aspirin Baby 81mg ORAL SCH (08:20)
[2018-01-10] MEDS: Nitroglycerin Patch 0.4mg TDERMAL SCH (13:00)
[2018-01-11] VITALS: BP 113/70
[2018-01-11 04:00] VITALS: BP 112/62
[2018-01-11 08:00] VITALS: BP 126/76
[2018-01-11] MEDS: Aspirin Baby 81mg ORAL SCH (08:52)
[2018-01-11 12:00] VITALS: BP 98/69
[2018-01-11] MEDS: Nitroglycerin Patch 0.4mg TDERMAL SCH (13:00)
--- NOTE | 2018-01-11 13:03 | General Progress Note ---
Assessment/Plan Assessment/Plan 1. Acute encephalopathy with chronic dementia 2. abnormal Troponin 3. Hypernatremia, resolved 4. Abnormal LFT. 5. Hyperproteinemia. 6. Lack of capacity of making medical decisions. 7. GI and DVT prophylaxis. Bioethics has recommended DNAR/DNI and hospice care eating a bit better dc to snf/hospice when bed available Subjective ROS Limited/Unobtainable: Yes Allergies: Coded Allergies: No Known Allergies (Unverified , 01/01/18) Objective Last 24 Hour Vital Signs Date Time Temp Pulse Resp B/P (MAP) Pulse Ox O2 Delivery O2 Flow Rate FiO2 01/11/18 12:00 97.4 101 18 98/69 100 Room Air 97.4 01/11/18 08:00 97.1 98 18 126/76 98 Room Air 97.1 01/11/18 04:00 97.3 99 19 112/62 100 97.3 01/11/18 00:00 97.3 99 20 113/70 100 97.3 01/10/18 20:00 97.6 98 20 116/84 100 97.6 01/10/18 16:00 96.0 109 17 105/71 97 96.0 01/10/18 14:18 103 100/64 Intake and Output 01/10/18 01/11/18 19:00 07:00 Intake Total 500 ml Balance 500 ml Intake Oral 500 ml # Voids 2 3 Height (Feet): 5 Height (Inches): 7.00 Weight (Pounds): 140 General Appearance: no apparent distress Cardiovascular: normal rate Respiratory/Chest: lungs clear Christopher Romero MD January 11, 2018 13:03
[2018-01-11 16:00] VITALS: BP 99/65
[2018-01-11 20:00] VITALS: BP 118/77
[2018-01-12] VITALS: BP 125/79
[2018-01-12 04:00] VITALS: BP 104/66
[2018-01-12 08:00] VITALS: BP 88/63
[2018-01-12] MEDS: Aspirin Baby 81mg ORAL SCH (10:04)
[2018-01-12 12:00] VITALS: BP 89/64
[2018-01-12] MEDS: Nitroglycerin Patch 0.4mg TDERMAL SCH (13:00)
--- NOTE | 2018-01-12 13:38 | General Progress Note ---
Assessment/Plan Assessment/Plan 1. Acute encephalopathy with chronic dementia 2. abnormal Troponin 3. Hypernatremia, resolved 4. Abnormal LFT. 5. Hyperproteinemia. 6. Lack of capacity of making medical decisions. 7. GI and DVT prophylaxis. disc w insurance physician advisor dc to snf/hospice when bed available difficult placement Subjective ROS Limited/Unobtainable: Yes Allergies: Coded Allergies: No Known Allergies (Unverified , 01/01/18) Objective Last 24 Hour Vital Signs Date Time Temp Pulse Resp B/P (MAP) Pulse Ox O2 Delivery O2 Flow Rate FiO2 01/12/18 12:00 97.4 98 16 89/64 98 Room Air 97.4 01/12/18 08:00 97.1 97 14 88/63 97 Room Air 97.1 01/12/18 04:00 97.8 89 18 104/66 98 97.8 01/12/18 00:00 97.8 105 19 125/79 98 97.8 01/11/18 20:00 97.5 98 20 118/77 100 97.5 01/11/18 16:00 97.4 95 18 99/65 100 Room Air 97.4 Intake and Output 01/11/18 01/12/18 19:00 07:00 Intake Total 360 ml 500 ml Output Total 150 ml Balance 360 ml 350 ml Intake Oral 360 ml 500 ml Output Urine Total 150 ml # Voids 2 3 Height (Feet): 5 Height (Inches): 7.00 Weight (Pounds): 140 General Appearance: no apparent distress, confused Neck: supple Cardiovascular: normal rate Respiratory/Chest: lungs clear Christopher Romero MD January 12, 2018 13:38
--- NOTE | 2018-01-12 15:34 | General Progress Note ---
Assessment/Plan Assessment/Plan dementia with behavioral dist encephalopathy not able to make decisions lacks capacity poor intake noncompliant recommend DNR, comfort care Subjective Date patient seen: January 11, 2018 Allergies: Coded Allergies: No Known Allergies (Unverified , 01/01/18) Subjective the pts mental condition is unchanged. the pt is confused unable to process or understand the info given to him. the pt is disoriented. the pt is refusing the meds and care Objective Last 24 Hour Vital Signs Date Time Temp Pulse Resp B/P (MAP) Pulse Ox O2 Delivery O2 Flow Rate FiO2 01/12/18 13:00 89/64 01/12/18 12:00 97.4 98 16 89/64 98 Room Air 97.4 01/12/18 08:00 97.1 97 14 88/63 97 Room Air 97.1 01/12/18 04:00 97.8 89 18 104/66 98 97.8 01/12/18 00:00 97.8 105 19 125/79 98 97.8 01/11/18 20:00 97.5 98 20 118/77 100 97.5 01/11/18 16:00 97.4 95 18 99/65 100 Room Air 97.4 Intake and Output 01/11/18 01/12/18 19:00 07:00 Intake Total 360 ml 500 ml Output Total 150 ml Balance 360 ml 350 ml Intake Oral 360 ml 500 ml Output Urine Total 150 ml # Voids 2 3 Height (Feet): 5 Height (Inches): 7.00 Weight (Pounds): 140 Sandra Sherwood M.D. January 12, 2018 15:34
--- NOTE | 2018-01-12 15:35 | General Progress Note ---
Assessment/Plan Assessment/Plan dementia with behavioral dist encephalopathy not able to make decisions lacks capacity poor intake noncompliant recommend DNR, comfort care Subjective Date patient seen: January 12, 2018 Neurologic/Psychiatric: Reports: anxiety, depressed, emotional problems Allergies: Coded Allergies: No Known Allergies (Unverified , 01/01/18) Subjective the pts mental condition is unchanged. the pt is confused unable to process or understand the info given to him. the pt is disoriented. the pt is refusing the meds and care Objective Last 24 Hour Vital Signs Date Time Temp Pulse Resp B/P (MAP) Pulse Ox O2 Delivery O2 Flow Rate FiO2 01/12/18 13:00 89/64 01/12/18 12:00 97.4 98 16 89/64 98 Room Air 97.4 01/12/18 08:00 97.1 97 14 88/63 97 Room Air 97.1 01/12/18 04:00 97.8 89 18 104/66 98 97.8 01/12/18 00:00 97.8 105 19 125/79 98 97.8 01/11/18 20:00 97.5 98 20 118/77 100 97.5 01/11/18 16:00 97.4 95 18 99/65 100 Room Air 97.4 Intake and Output 01/11/18 01/12/18 19:00 07:00 Intake Total 360 ml 500 ml Output Total 150 ml Balance 360 ml 350 ml Intake Oral 360 ml 500 ml Output Urine Total 150 ml # Voids 2 3 Height (Feet): 5 Height (Inches): 7.00 Weight (Pounds): 140 General Appearance: no apparent distress, alert, confused Sandra Sherwood M.D. January 12, 2018 15:34
[2018-01-12 16:00] VITALS: BP 104/66
[2018-01-12 20:00] VITALS: BP 107/68
--- NOTE | 2018-01-12 23:21 | Cardiology Progress Note ---
Assessment/Plan Assessment/Plan COVERAGE FOR DR. GONZALES 1. Troponin elevation, ? NSTEMI, vs renal failure, Echocardiogram showed EF 65% . ECG Bifascicular block. No CP or SOB. 2. Sinus tachycardia, likely due to dehydration. 3. Bifascicular block, including RBBB and LAFB. Subjective Subjective Awake and alert, no apparent distress. Not on telemetry unit. Denies CP. Objective Last 24 Hour Vital Signs Date Time Temp Pulse Resp B/P (MAP) Pulse Ox O2 Delivery O2 Flow Rate FiO2 01/12/18 20:00 98.6 99 20 107/68 95 98.6 01/12/18 16:00 97.7 95 17 104/66 98 Room Air 97.7 01/12/18 13:00 89/64 01/12/18 12:00 97.4 98 16 89/64 98 Room Air 97.4 01/12/18 08:00 97.1 97 14 88/63 97 Room Air 97.1 01/12/18 04:00 97.8 89 18 104/66 98 97.8 01/12/18 00:00 97.8 105 19 125/79 98 97.8 Intake and Output 01/11/18 01/12/18 19:00 07:00 Intake Total 360 ml 500 ml Output Total 150 ml Balance 360 ml 350 ml Intake Oral 360 ml 500 ml Output Urine Total 150 ml # Voids 2 3 2D Echo: EF 65%, RVSP 16 mmHg Objective HEAD AND NECK: No JVD. LUNGS: Clear. CARDIOVASCULAR: Regular S1 and S2 with no gallop or murmur. ABDOMEN: Soft. EXTREMITIES: 1+ pitting edema. DI MCDONALD January 12, 2018 23:21
[2018-01-13] VITALS (7 sets, daily range): BP systolic 88–128; BP diastolic 59–72
[2018-01-13] MEDS: Aspirin Baby 81mg ORAL SCH (08:50)
--- NOTE | 2018-01-13 12:47 | General Progress Note ---
Assessment/Plan Assessment/Plan 1. Acute encephalopathy with chronic dementia 2. abnormal Troponin 3. Hypernatremia, resolved 4. Abnormal LFT. 5. Hyperproteinemia. 6. Lack of capacity of making medical decisions. 7. GI and DVT prophylaxis. eating a bit better spits out meds does not remember me from day to day disc w insurance physician advisor dc to snf/hospice when bed available difficult placement Subjective ROS Limited/Unobtainable: Yes Allergies: Coded Allergies: No Known Allergies (Unverified , 01/01/18) Objective Last 24 Hour Vital Signs Date Time Temp Pulse Resp B/P (MAP) Pulse Ox O2 Delivery O2 Flow Rate FiO2 01/13/18 12:00 97.7 95 21 121/72 97 Room Air 97.7 01/13/18 08:00 97.1 16 100/67 100 Room Air 97.1 01/13/18 04:00 97.7 83 20 96/67 95 97.7 01/13/18 00:00 98.6 93 20 107/70 98 98.6 01/12/18 20:00 98.6 99 20 107/68 95 98.6 01/12/18 16:00 97.7 95 17 104/66 98 Room Air 97.7 01/12/18 13:00 89/64 Intake and Output 01/12/18 01/13/18 19:00 07:00 Intake Total 480 ml 20 ml Balance 480 ml 20 ml Intake Oral 480 ml 20 ml # Voids 5 Height (Feet): 5 Height (Inches): 7.00 Weight (Pounds): 132 Christopher Romero MD January 13, 2018 12:47
[2018-01-13] MEDS: Nitroglycerin Patch 0.4mg TDERMAL SCH (12:48)
--- NOTE | 2018-01-13 15:57 | General Progress Note ---
Assessment/Plan Status: stable, unchanged Assessment/Plan dementia with behavioral dist encephalopathy not able to make decisions lacks capacity poor intake noncompliant recommend DNR, comfort care Subjective Date patient seen: January 13, 2018 Neurologic/Psychiatric: Reports: anxiety, emotional problems Allergies: Coded Allergies: No Known Allergies (Unverified , 01/01/18) Subjective the pts mental condition is unchanged. the pt is confused unable to process or understand the info given to him. the pt is disoriented. Objective Last 24 Hour Vital Signs Date Time Temp Pulse Resp B/P (MAP) Pulse Ox O2 Delivery O2 Flow Rate FiO2 01/13/18 12:48 121/72 01/13/18 12:00 97.7 95 21 121/72 97 Room Air 97.7 01/13/18 08:00 97.1 16 100/67 100 Room Air 97.1 01/13/18 04:00 97.7 83 20 96/67 95 97.7 01/13/18 00:00 98.6 93 20 107/70 98 98.6 01/12/18 20:00 98.6 99 20 107/68 95 98.6 01/12/18 16:00 97.7 95 17 104/66 98 Room Air 97.7 Intake and Output 01/12/18 01/13/18 19:00 07:00 Intake Total 480 ml 20 ml Balance 480 ml 20 ml Intake Oral 480 ml 20 ml # Voids 5 Height (Feet): 5 Height (Inches): 7.00 Weight (Pounds): 132 General Appearance: WD/WN, no apparent distress, alert, confused Sandra Sherwood M.D. January 13, 2018 15:57
[2018-01-14] VITALS: BP 100/70
[2018-01-14 04:00] VITALS: BP 102/73
[2018-01-14 08:00] VITALS: BP 97/65
[2018-01-14] MEDS: Aspirin Baby 81mg ORAL SCH (09:04)
--- NOTE | 2018-01-14 11:57 | General Progress Note ---
Assessment/Plan Assessment/Plan dementia with behavioral dist encephalopathy not able to make decisions lacks capacity poor intake noncompliant recommend DNR, comfort care Subjective Date patient seen: January 14, 2018 Neurologic/Psychiatric: Reports: anxiety, depressed, emotional problems Allergies: Coded Allergies: No Known Allergies (Unverified , 01/01/18) Subjective the pts mental condition is unchanged. the pt is confused unable to process or understand the info given to him. the pt is disoriented. Objective Last 24 Hour Vital Signs Date Time Temp Pulse Resp B/P (MAP) Pulse Ox O2 Delivery O2 Flow Rate FiO2 01/14/18 08:00 97.9 89 20 97/65 99 Room Air 97.9 01/14/18 04:00 98.3 96 19 102/73 100 Room Air 98.3 01/14/18 00:00 99.1 93 18 100/70 99 Room Air 99.1 01/13/18 20:00 98.8 98 19 99/71 98 98.8 01/13/18 16:03 97.4 97 19 128/59 97 Room Air 97.4 01/13/18 12:48 121/72 01/13/18 12:00 97.7 95 21 121/72 97 Room Air 97.7 Intake and Output 01/13/18 01/14/18 19:00 07:00 Intake Total 720 ml 240 ml Balance 720 ml 240 ml Intake Oral 720 ml 240 ml # Voids 3 2 Height (Feet): 5 Height (Inches): 7.00 Weight (Pounds): 132 Sandra Sherwood M.D. January 14, 2018 11:57
[2018-01-14 12:00] VITALS: BP 124/86
[2018-01-14] MEDS: Nitroglycerin Patch 0.4mg TDERMAL SCH (12:33)
[2018-01-14 16:00] VITALS: BP 101/75
--- NOTE | 2018-01-14 17:57 | General Progress Note ---
Assessment/Plan Assessment/Plan 1. Acute encephalopathy with chronic dementia 2. abnormal Troponin 3. Hypernatremia, resolved 4. Abnormal LFT. 5. Hyperproteinemia. 6. Lack of capacity of making medical decisions. 7. GI and DVT prophylaxis. eating a bit spits out meds dc to snf/hospice when bed available difficult placement Subjective ROS Limited/Unobtainable: Yes Allergies: Coded Allergies: No Known Allergies (Unverified , 01/01/18) Objective Last 24 Hour Vital Signs Date Time Temp Pulse Resp B/P (MAP) Pulse Ox O2 Delivery O2 Flow Rate FiO2 01/14/18 16:00 97.7 70 18 101/75 99 Room Air 97.7 01/14/18 12:33 97/65 01/14/18 12:00 97.3 85 20 124/86 98 Room Air 97.3 01/14/18 08:00 97.9 89 20 97/65 99 Room Air 97.9 01/14/18 04:00 98.3 96 19 102/73 100 Room Air 98.3 01/14/18 00:00 99.1 93 18 100/70 99 Room Air 99.1 01/13/18 20:00 98.8 98 19 99/71 98 98.8 Intake and Output 01/13/18 01/14/18 19:00 07:00 Intake Total 720 ml 240 ml Balance 720 ml 240 ml Intake Oral 720 ml 240 ml # Voids 3 2 Height (Feet): 5 Height (Inches): 7.00 Weight (Pounds): 132 General Appearance: alert, confused Cardiovascular: normal rate Respiratory/Chest: lungs clear Christopher Romero MD January 14, 2018 17:57
[2018-01-14 20:00] VITALS: BP 108/72
[2018-01-15] VITALS (7 sets, daily range): BP systolic 97–139; BP diastolic 67–77
[2018-01-15] MEDS: Aspirin Baby 81mg ORAL SCH (08:24)
--- NOTE | 2018-01-15 12:24 | General Progress Note ---
Assessment/Plan Assessment/Plan 1. Acute encephalopathy with chronic dementia 2. abnormal Troponin 3. Hypernatremia, resolved 4. Abnormal LFT. 5. Hyperproteinemia. 6. Lack of capacity of making medical decisions. 7. GI and DVT prophylaxis. sleeping not taking hospice when bed available difficult placement disc w [employer] Subjective ROS Limited/Unobtainable: Yes Allergies: Coded Allergies: No Known Allergies (Unverified , 01/01/18) Objective Last 24 Hour Vital Signs Date Time Temp Pulse Resp B/P (MAP) Pulse Ox O2 Delivery O2 Flow Rate FiO2 01/15/18 12:00 96.6 82 16 102/69 100 Room Air 96.6 01/15/18 08:00 98.4 94 16 97/68 99 Room Air 98.4 01/15/18 04:00 97.7 103 20 116/73 96 Room Air 97.7 01/15/18 00:00 97.9 97 20 110/77 99 Room Air 97.9 01/14/18 20:00 98.5 101 18 108/72 99 Room Air 98.5 01/14/18 16:00 97.7 70 18 101/75 99 Room Air 97.7 01/14/18 12:33 97/65 Intake and Output 01/14/18 01/15/18 19:00 07:00 Intake Total 480 ml 580 ml Output Total 1 ml Balance 480 ml 579 ml Intake Oral 480 ml 580 ml Output Urine Total 1 ml # Voids 8 5 # Bowel Movements 1 2 Height (Feet): 5 Height (Inches): 7.00 Weight (Pounds): 132 General Appearance: no apparent distress, confused, cachetic Christopher Romero MD January 15, 2018 12:23
--- NOTE | 2018-01-15 12:53 | General Progress Note ---
Assessment/Plan Assessment/Plan dementia with behavioral dist encephalopathy not able to make decisions lacks capacity poor intake noncompliance comfort care awaiting placement Subjective Date patient seen: January 15, 2018 Neurologic/Psychiatric: Reports: anxiety, depressed Allergies: Coded Allergies: No Known Allergies (Unverified , 01/01/18) Subjective the pts mental condition is unchanged. the pt is confused unable to process or understand the info given to him. the pt is disoriented. Objective Last 24 Hour Vital Signs Date Time Temp Pulse Resp B/P (MAP) Pulse Ox O2 Delivery O2 Flow Rate FiO2 01/15/18 12:00 96.6 82 16 102/69 100 Room Air 96.6 01/15/18 08:00 98.4 94 16 97/68 99 Room Air 98.4 01/15/18 04:00 97.7 103 20 116/73 96 Room Air 97.7 01/15/18 00:00 97.9 97 20 110/77 99 Room Air 97.9 01/14/18 20:00 98.5 101 18 108/72 99 Room Air 98.5 01/14/18 16:00 97.7 70 18 101/75 99 Room Air 97.7 Intake and Output 01/14/18 01/15/18 19:00 07:00 Intake Total 480 ml 580 ml Output Total 1 ml Balance 480 ml 579 ml Intake Oral 480 ml 580 ml Output Urine Total 1 ml # Voids 8 5 # Bowel Movements 1 2 Height (Feet): 5 Height (Inches): 7.00 Weight (Pounds): 132 General Appearance: WD/WN, no apparent distress, alert, confused Neurologic: depressed affect Sandra Sherwood M.D. January 15, 2018 12:53
[2018-01-15] MEDS: Nitroglycerin Patch 0.4mg TDERMAL SCH (12:58)
[2018-01-16 04:00] VITALS: BP 96/66
[2018-01-16 08:00] VITALS: BP 96/63
[2018-01-16] MEDS: Aspirin Baby 81mg ORAL SCH (08:06)
--- NOTE | 2018-01-16 09:42 | Pulmonology Progress Note ---
Assessment/Plan Assessment/Plan 1. Acute encephalopathy with chronic dementia 2. abnormal Troponin 3. Hypernatremia, resolved 4. Abnormal LFT. 5. Hyperproteinemia. 6. Lack of capacity of making medical decisions. 7. GI and DVT prophylaxis. check labs prn fall precautions eating better, refuses meds dc to snf/hospice when bed available Subjective Constitutional: Reports: no symptoms HEENT: Repors: dysphagia Respiratory: Reports: no symptoms Cardiovascular: Reports: no symptoms, chest pain Gastrointestinal/Abdominal: Reports: no symptoms Genitourinary: Reports: no symptoms Neurologic: Reports: no symptoms Allergies: Coded Allergies: No Known Allergies (Unverified , 01/01/18) Subjective no complaints tolerating po no getting oob confused, but no distress no cp nv or bleeding Objective Last 24 Hour Vital Signs Date Time Temp Pulse Resp B/P (MAP) Pulse Ox O2 Delivery O2 Flow Rate FiO2 01/16/18 08:00 97.7 103 18 96/63 100 Room Air 97.7 01/16/18 04:00 98.0 96 19 96/66 100 Room Air 98.0 01/15/18 23:50 98.7 104 20 117/73 98 98.7 01/15/18 20:00 99.1 100 18 139/75 99 99.1 01/15/18 16:00 98.4 88 18 109/67 97 Room Air 98.4 01/15/18 12:58 104/66 01/15/18 12:00 96.6 82 16 102/69 100 Room Air 96.6 Intake and Output 01/15/18 01/16/18 19:00 07:00 Intake Total 610 ml Balance 610 ml Intake Oral 610 ml # Voids 4 1 General Appearance: cachetic HEENT: atraumatic, mucous membranes moist Cardiovascular: regular rhythm, regularly irregular Abdomen: soft, non tender, no organomegaly Extremities: no cyanosis Skin: no rash, no ulcers Neurologic/Psychiatric: abnormal gait, alert Current Medications Medications (Trade) Dose Ordered Sig/Sherif Route PRN Reason Start Time Stop Time Status Last Admin Dose Admin Aspirin (ASA) 162 mg DAILY ORAL 01/07/18 09:00 02/01/18 12:59 01/16/18 08:06 Clotrimazole (Lotrimin) 1 applic EVERY 12 HOURS TOPIC 01/06/18 21:00 02/04/18 08:59 01/16/18 08:06 Folic Acid (Folate) 5 mg DAILY ORAL 01/07/18 09:00 02/03/18 08:59 01/16/18 08:06 Haloperidol Lactate (Haldol) 5 mg Q6H PRN IM Agitation 01/06/18 18:00 02/03/18 11:59 Lansoprazole (Prevacid) 30 mg DAILY ORAL 01/14/18 09:00 02/13/18 08:59 01/16/18 08:06 Nitroglycerin (Ntg) 1 patch Q24H TDERMAL 01/11/18 13:00 02/01/18 12:59 01/14/18 12:33 Risperidone (RisperDAL) 1 mg BEDTIME ORAL 01/06/18 21:00 02/03/18 20:59 01/15/18 20:31 CRIS TAVAREZ DO January 16, 2018 09:42
[2018-01-16 12:00] VITALS: BP 108/66
[2018-01-16] MEDS: Nitroglycerin Patch 0.4mg TDERMAL SCH ×2 (12:55→16:00)
[2018-01-16 16:05] VITALS: BP 105/65
[2018-01-16 20:00] VITALS: BP 120/72
[2018-01-17] VITALS (7 sets, daily range): BP systolic 89–123; BP diastolic 57–73
--- NOTE | 2018-01-17 05:59 | Pulmonology Progress Note ---
Assessment/Plan Assessment/Plan 1. Acute encephalopathy with chronic dementia 2. abnormal Troponin 3. Hypernatremia, resolved 4. Abnormal LFT. 5. Hyperproteinemia. 6. Lack of capacity of making medical decisions. 7. GI and DVT prophylaxis. check labs prn fall precautions eating better, refuses meds dc to snf/hospice when bed available Subjective Constitutional: Reports: no symptoms HEENT: Repors: no symptoms Cardiovascular: Reports: no symptoms Gastrointestinal/Abdominal: Reports: no symptoms Genitourinary: Reports: no symptoms Neurologic: Reports: no symptoms Allergies: Coded Allergies: No Known Allergies (Unverified , 01/01/18) Subjective doingwell no complaints tolerating po no getting oob confused, but no distress no cp nv or bleeding Objective Last 24 Hour Vital Signs Date Time Temp Pulse Resp B/P (MAP) Pulse Ox O2 Delivery O2 Flow Rate FiO2 01/17/18 04:00 98.2 83 20 107/69 99 98.2 01/17/18 00:00 97.3 85 20 109/67 98 97.3 01/16/18 20:00 98.1 84 20 120/72 100 98.1 01/16/18 16:05 97.7 90 21 105/65 97 Room Air 97.7 01/16/18 16:00 105/65 01/16/18 12:55 104/67 01/16/18 12:00 98.1 97 20 108/66 97 98.1 01/16/18 08:00 97.7 103 18 96/63 100 Room Air 97.7 Intake and Output 01/16/18 01/17/18 19:00 07:00 Intake Total 720 ml Balance 720 ml Intake Oral 720 ml # Voids 3 # Bowel Movements 1 General Appearance: cachetic HEENT: atraumatic, anicteric, other - poor dentition Respiratory/Chest: lungs clear, no respiratory distress Cardiovascular: normal rate, regular rhythm Abdomen: soft, non tender, non distended Extremities: no cyanosis Neurologic/Psychiatric: alert Lymphatic: no neck adenopathy Musculoskeletal: normal muscle bulk, no effusion Current Medications Medications (Trade) Dose Ordered Sig/Sherif Route PRN Reason Start Time Stop Time Status Last Admin Dose Admin Aspirin (ASA) 162 mg DAILY ORAL 01/17/18 09:00 02/01/18 08:59 Clotrimazole (Lotrimin) 1 applic EVERY 12 HOURS TOPIC 01/06/18 21:00 02/04/18 08:59 01/16/18 20:45 Folic Acid (Folate) 5 mg DAILY ORAL 01/17/18 09:00 02/03/18 08:59 Haloperidol Lactate (Haldol) 5 mg Q6H PRN IM Agitation 01/06/18 18:00 02/03/18 11:59 Lansoprazole (Prevacid) 30 mg DAILY ORAL 01/17/18 09:00 02/13/18 08:59 Nitroglycerin (Ntg) 1 patch Q24H TDERMAL 01/16/18 16:00 02/01/18 15:59 Risperidone (RisperDAL) 1 mg BEDTIME ORAL 01/16/18 21:00 02/15/18 20:59 01/16/18 20:45 CRIS TAVAREZ DO January 17, 2018 05:59
[2018-01-17] MEDS: Aspirin Baby 81mg ORAL SCH (09:31)
[2018-01-17] MEDS: Nitroglycerin Patch 0.4mg TDERMAL SCH (16:00)
[2018-01-18] VITALS: BP 101/63
[2018-01-18 04:00] VITALS: BP 104/66
[2018-01-18 08:00] VITALS: BP 93/65
[2018-01-18] MEDS: Aspirin Baby 81mg ORAL SCH (09:00)
[2018-01-18 12:00] VITALS: BP 100/68
--- NOTE | 2018-01-18 13:07 | General Progress Note ---
Assessment/Plan Assessment/Plan 1. Acute encephalopathy with chronic dementia 2. abnormal Troponin 3. Hypernatremia, resolved 4. Abnormal LFT. 5. Hyperproteinemia. 6. Lack of capacity of making medical decisions. 7. GI and DVT prophylaxis. sleeping not taking meds hospice when bed available difficult placement Subjective ROS Limited/Unobtainable: Yes Constitutional: Reports: no symptoms Allergies: Coded Allergies: No Known Allergies (Unverified , 01/01/18) Objective Last 24 Hour Vital Signs Date Time Temp Pulse Resp B/P (MAP) Pulse Ox O2 Delivery O2 Flow Rate FiO2 01/18/18 08:00 97.1 92 20 93/65 100 Room Air 97.1 01/18/18 04:00 97.1 92 20 104/66 100 97.1 01/18/18 00:00 98.7 94 20 101/63 100 98.7 01/17/18 20:00 98.4 96 20 110/72 96 98.4 01/17/18 16:00 100/73 01/17/18 15:59 97.0 88 19 100/73 100 Room Air 97.0 Intake and Output 01/17/18 01/18/18 19:00 07:00 Intake Total 840 ml 240 ml Balance 840 ml 240 ml Intake Oral 840 ml 240 ml # Voids 3 1 Height (Feet): 5 Height (Inches): 7.00 Weight (Pounds): 132 General Appearance: no apparent distress Christopher Romero MD January 18, 2018 13:07
--- NOTE | 2018-01-18 15:02 | General Progress Note ---
Assessment/Plan Assessment/Plan dementia with behavioral dist encephalopathy not able to make decisions lacks capacity poor intake noncompliance comfort care awaiting placement Subjective Date patient seen: January 18, 2018 Allergies: Coded Allergies: No Known Allergies (Unverified , 01/01/18) Subjective the pts mental condition is unchanged. the pt is confused unable to process or understand the info given to him. the pt is disoriented. Objective Last 24 Hour Vital Signs Date Time Temp Pulse Resp B/P (MAP) Pulse Ox O2 Delivery O2 Flow Rate FiO2 01/18/18 12:00 97.3 87 20 100/68 100 Room Air 97.3 01/18/18 08:00 97.1 92 20 93/65 100 Room Air 97.1 01/18/18 04:00 97.1 92 20 104/66 100 97.1 01/18/18 00:00 98.7 94 20 101/63 100 98.7 01/17/18 20:00 98.4 96 20 110/72 96 98.4 01/17/18 16:00 100/73 01/17/18 15:59 97.0 88 19 100/73 100 Room Air 97.0 Intake and Output 01/17/18 01/18/18 19:00 07:00 Intake Total 840 ml 240 ml Balance 840 ml 240 ml Intake Oral 840 ml 240 ml # Voids 3 1 Height (Feet): 5 Height (Inches): 7.00 Weight (Pounds): 132 Sandra Sherwood M.D. January 18, 2018 15:02
[2018-01-18 16:00] VITALS: BP 103/68
[2018-01-18] MEDS: Nitroglycerin Patch 0.4mg TDERMAL SCH (16:56)
[2018-01-18 20:00] VITALS: BP 110/65
[2018-01-19] VITALS (8 sets, daily range): BP systolic 100–137; BP diastolic 65–98
[2018-01-19] MEDS: Aspirin Baby 81mg ORAL SCH (09:00)
--- NOTE | 2018-01-19 10:26 | General Progress Note ---
Assessment/Plan Assessment/Plan 1. Acute encephalopathy with chronic dementia 2. abnormal Troponin 3. Hypernatremia, resolved 4. Abnormal LFT. 5. Hyperproteinemia. 6. Lack of capacity of making medical decisions. 7. GI and DVT prophylaxis. feels fine, eating better not taking meds hospice when bed available difficult placement Subjective ROS Limited/Unobtainable: Yes Constitutional: Reports: weakness Neurologic/Psychiatric: Reports: weakness Allergies: Coded Allergies: No Known Allergies (Unverified , 01/01/18) Objective Last 24 Hour Vital Signs Date Time Temp Pulse Resp B/P (MAP) Pulse Ox O2 Delivery O2 Flow Rate FiO2 01/19/18 08:00 97.1 17 100/65 99 Room Air 97.1 01/19/18 04:00 98.1 91 20 113/77 100 98.1 01/19/18 00:00 97.2 102 20 112/67 97 97.2 01/18/18 20:00 98.1 99 20 110/65 98 98.1 01/18/18 16:56 100/68 01/18/18 16:00 97.7 92 20 103/68 100 Room Air 97.7 01/18/18 12:00 97.3 87 20 100/68 100 Room Air 97.3 Intake and Output 01/18/18 01/19/18 19:00 07:00 Intake Total 200 ml 200 ml Balance 200 ml 200 ml Intake Oral 200 ml 200 ml # Voids 6 3 # Bowel Movements 1 Height (Feet): 5 Height (Inches): 7.00 Weight (Pounds): 132 General Appearance: no apparent distress, cachetic Cardiovascular: normal rate Christopher Romero MD January 19, 2018 10:26
--- NOTE | 2018-01-19 13:09 | General Progress Note ---
Assessment/Plan Status: stable Assessment/Plan dementia with behavioral dist encephalopathy not able to make decisions lacks capacity poor intake noncompliance comfort care awaiting placement Subjective Date patient seen: January 19, 2018 Neurologic/Psychiatric: Reports: anxiety, depressed Allergies: Coded Allergies: No Known Allergies (Unverified , 01/01/18) Subjective the pts mental condition is unchanged. the pt is disorganized and confused Objective Last 24 Hour Vital Signs Date Time Temp Pulse Resp B/P (MAP) Pulse Ox O2 Delivery O2 Flow Rate FiO2 01/19/18 08:00 97.1 17 100/65 99 Room Air 97.1 01/19/18 04:00 98.1 91 20 113/77 100 98.1 01/19/18 00:00 97.2 102 20 112/67 97 97.2 01/18/18 20:00 98.1 99 20 110/65 98 98.1 01/18/18 16:56 100/68 01/18/18 16:00 97.7 92 20 103/68 100 Room Air 97.7 Intake and Output 01/18/18 01/19/18 19:00 07:00 Intake Total 200 ml 200 ml Balance 200 ml 200 ml Intake Oral 200 ml 200 ml # Voids 6 3 # Bowel Movements 1 Height (Feet): 5 Height (Inches): 7.00 Weight (Pounds): 132 General Appearance: WD/WN, no apparent distress, alert, confused Sandra Sherwood M.D. January 19, 2018 13:09
--- NOTE | 2018-01-19 13:10 | Psych Consult Progress Note ---
Psych Consult Progress Note Consult 01/16/18 dementia with behavioral dist encephalopathy not able to make decisions lacks capacity poor intake noncompliance comfort care awaiting placement Vital Signs Last 24 Hour Vital Signs Date Time Temp Pulse Resp B/P (MAP) Pulse Ox O2 Delivery O2 Flow Rate FiO2 01/19/18 08:00 97.1 17 100/65 99 Room Air 97.1 01/19/18 04:00 98.1 91 20 113/77 100 98.1 01/19/18 00:00 97.2 102 20 112/67 97 97.2 01/18/18 20:00 98.1 99 20 110/65 98 98.1 01/18/18 16:56 100/68 01/18/18 16:00 97.7 92 20 103/68 100 Room Air 97.7 Medications Current Medications Medications (Trade) Dose Ordered Sig/Sherif Route PRN Reason Start Time Stop Time Status Last Admin Dose Admin Aspirin (ASA) 162 mg DAILY ORAL 01/17/18 09:00 02/01/18 08:59 01/18/18 09:00 Clotrimazole (Lotrimin) 1 applic EVERY 12 HOURS TOPIC 01/06/18 21:00 02/04/18 08:59 01/18/18 21:26 Folic Acid (Folate) 5 mg DAILY ORAL 01/17/18 09:00 02/03/18 08:59 01/18/18 08:59 Haloperidol Lactate (Haldol) 5 mg Q6H PRN IM Agitation 01/06/18 18:00 02/03/18 11:59 Lansoprazole (Prevacid) 30 mg DAILY ORAL 01/17/18 09:00 02/13/18 08:59 01/18/18 08:59 Nitroglycerin (Ntg) 1 patch Q24H TDERMAL 01/16/18 16:00 02/01/18 15:59 01/18/18 16:56 Risperidone (RisperDAL) 1 mg BEDTIME ORAL 01/16/18 21:00 02/15/18 20:59 01/18/18 21:26 Problems: (1) Altered mental status Status: Chronic (2) Failure to thrive in adult Status: Acute Sandra Sherwood M.D. January 19, 2018 13:10
--- NOTE | 2018-01-19 13:11 | Psych Consult Progress Note ---
Psych Consult Progress Note Consult 01/17/18 dementia with behavioral dist encephalopathy not able to make decisions lacks capacity poor intake noncompliance comfort care awaiting placement Vital Signs Last 24 Hour Vital Signs Date Time Temp Pulse Resp B/P (MAP) Pulse Ox O2 Delivery O2 Flow Rate FiO2 01/19/18 08:00 97.1 17 100/65 99 Room Air 97.1 01/19/18 04:00 98.1 91 20 113/77 100 98.1 01/19/18 00:00 97.2 102 20 112/67 97 97.2 01/18/18 20:00 98.1 99 20 110/65 98 98.1 01/18/18 16:56 100/68 01/18/18 16:00 97.7 92 20 103/68 100 Room Air 97.7 Medications Current Medications Medications (Trade) Dose Ordered Sig/Sherif Route PRN Reason Start Time Stop Time Status Last Admin Dose Admin Aspirin (ASA) 162 mg DAILY ORAL 01/17/18 09:00 02/01/18 08:59 01/18/18 09:00 Clotrimazole (Lotrimin) 1 applic EVERY 12 HOURS TOPIC 01/06/18 21:00 02/04/18 08:59 01/18/18 21:26 Folic Acid (Folate) 5 mg DAILY ORAL 01/17/18 09:00 02/03/18 08:59 01/18/18 08:59 Haloperidol Lactate (Haldol) 5 mg Q6H PRN IM Agitation 01/06/18 18:00 02/03/18 11:59 Lansoprazole (Prevacid) 30 mg DAILY ORAL 01/17/18 09:00 02/13/18 08:59 01/18/18 08:59 Nitroglycerin (Ntg) 1 patch Q24H TDERMAL 01/16/18 16:00 02/01/18 15:59 01/18/18 16:56 Risperidone (RisperDAL) 1 mg BEDTIME ORAL 01/16/18 21:00 02/15/18 20:59 01/18/18 21:26 Problems: (1) Altered mental status Status: Chronic Assessment & Plan: the pt is refusing care appropriate for PC (2) Failure to thrive in adult Status: Acute Sandra Sherwood M.D. January 19, 2018 13:11
[2018-01-19] MEDS: Nitroglycerin Patch 0.4mg TDERMAL SCH (16:00)
[2018-01-20 04:00] VITALS: BP 101/66
[2018-01-20 08:00] VITALS: BP 108/71
[2018-01-20] MEDS: Aspirin Baby 81mg ORAL SCH (08:56)
[2018-01-20 12:00] VITALS: BP 115/69
[2018-01-20 16:00] VITALS: BP 111/68
--- NOTE | 2018-01-20 16:04 | General Progress Note ---
Assessment/Plan Problem List: (1) Altered mental status Assessment & Plan: the pt is refusing care appropriate for PC ICD Codes: R41.82 - Altered mental status, unspecified SNOMED: 323537575 (2) Failure to thrive in adult ICD Codes: R62.7 - Adult failure to thrive SNOMED: 128153052 Assessment/Plan dementia with behavioral dist encephalopathy not able to make decisions lacks capacity poor intake noncompliance comfort care awaiting placement Subjective Date patient seen: January 20, 2018 Neurologic/Psychiatric: Reports: anxiety, depressed, emotional problems Allergies: Coded Allergies: No Known Allergies (Unverified , 01/01/18) Subjective the pts mental condition is unchanged. the pt is disorganized and confused Objective Last 24 Hour Vital Signs Date Time Temp Pulse Resp B/P (MAP) Pulse Ox O2 Delivery O2 Flow Rate FiO2 01/20/18 12:00 97.4 73 13 115/69 99 97.4 01/20/18 08:00 97.3 95 18 108/71 98 97.3 01/20/18 04:00 99.0 101 18 101/66 98 99.0 01/19/18 23:50 99.3 103 18 102/67 98 99.3 01/19/18 20:00 99.0 103 18 137/98 98 99.0 Intake and Output 01/19/18 01/20/18 19:00 07:00 Intake Total 450 ml Output Total 500 ml 400 ml Balance -50 ml -400 ml Intake Oral 450 ml Output Urine Total 500 ml 400 ml Height (Feet): 5 Height (Inches): 7.00 Weight (Pounds): 132 Sandra Sherwood M.D. January 20, 2018 16:04
[2018-01-20] MEDS: Nitroglycerin Patch 0.4mg TDERMAL SCH (16:11)
--- NOTE | 2018-01-20 18:49 | General Progress Note ---
Assessment/Plan Assessment/Plan 1. Acute encephalopathy with chronic dementia 2. abnormal Troponin 3. Hypernatremia, resolved 4. Abnormal LFT. 5. Hyperproteinemia. 6. Lack of capacity of making medical decisions. 7. GI and DVT prophylaxis. feels fine, eating better taking meds sporadically hospice when bed available difficult placement will disc w case management director Subjective ROS Limited/Unobtainable: Yes Allergies: Coded Allergies: No Known Allergies (Unverified , 01/01/18) Objective Last 24 Hour Vital Signs Date Time Temp Pulse Resp B/P (MAP) Pulse Ox O2 Delivery O2 Flow Rate FiO2 01/20/18 16:11 120/69 01/20/18 16:00 97.8 90 20 111/68 98 97.8 01/20/18 12:00 97.4 73 13 115/69 99 97.4 01/20/18 08:00 97.3 95 18 108/71 98 97.3 01/20/18 04:00 99.0 101 18 101/66 98 99.0 01/19/18 23:50 99.3 103 18 102/67 98 99.3 01/19/18 20:00 99.0 103 18 137/98 98 99.0 Intake and Output 01/19/18 01/20/18 19:00 07:00 Intake Total 450 ml Output Total 500 ml 400 ml Balance -50 ml -400 ml Intake Oral 450 ml Output Urine Total 500 ml 400 ml Height (Feet): 5 Height (Inches): 7.00 Weight (Pounds): 132 Christopher Romero MD January 20, 2018 18:49
[2018-01-20 20:00] VITALS: BP 130/64
[2018-01-21] VITALS: BP 115/76
[2018-01-21 04:00] VITALS: BP 105/72
[2018-01-21 08:00] VITALS: BP 108/74
[2018-01-21] MEDS: Aspirin Baby 81mg ORAL SCH (09:00)
[2018-01-21 12:00] VITALS: BP 115/72
--- NOTE | 2018-01-21 13:08 | General Progress Note ---
Assessment/Plan Assessment/Plan 1. Acute encephalopathy with chronic dementia 2. abnormal Troponin 3. Hypernatremia, resolved 4. Abnormal LFT. 5. Hyperproteinemia. 6. Lack of capacity of making medical decisions. 7. GI and DVT prophylaxis. 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 Subjective Allergies: Coded Allergies: No Known Allergies (Unverified , 01/01/18) Objective Last 24 Hour Vital Signs Date Time Temp Pulse Resp B/P (MAP) Pulse Ox O2 Delivery O2 Flow Rate FiO2 01/21/18 12:00 98.0 93 18 115/72 97 98.0 01/21/18 08:00 97.4 95 18 108/74 98 97.4 01/21/18 04:00 97.2 97 20 105/72 99 97.2 01/21/18 00:00 97.8 99 20 115/76 99 97.8 01/20/18 20:00 97.7 104 20 130/64 99 97.7 01/20/18 16:11 120/69 01/20/18 16:00 97.8 90 20 111/68 98 97.8 Intake and Output 01/20/18 01/21/18 19:00 07:00 Intake Total 520 ml 540 ml Output Total 600 ml 350 ml Balance -80 ml 190 ml Intake Oral 320 ml 540 ml Other 200 ml Output Urine Total 600 ml 350 ml # Voids 3 2 # Bowel Movements 1 1 Height (Feet): 5 Height (Inches): 7.00 Weight (Pounds): 132 General Appearance: no apparent distress, cachetic Christopher Romero MD January 21, 2018 13:08
--- NOTE | 2018-01-21 15:58 | General Progress Note ---
Assessment/Plan Problem List: (1) Altered mental status Assessment & Plan: the pt is refusing care appropriate for PC ICD Codes: R41.82 - Altered mental status, unspecified SNOMED: 858552609 (2) Failure to thrive in adult ICD Codes: R62.7 - Adult failure to thrive SNOMED: 966367305 Status: stable, progressing Assessment/Plan dementia with behavioral dist encephalopathy not able to make decisions lacks capacity poor intake noncompliance comfort care awaiting placement Subjective Date patient seen: January 21, 2018 Neurologic/Psychiatric: Reports: emotional problems Allergies: Coded Allergies: No Known Allergies (Unverified , 01/01/18) Subjective the pt is refusing all meds and care. the pt is disorganized and confused Objective Last 24 Hour Vital Signs Date Time Temp Pulse Resp B/P (MAP) Pulse Ox O2 Delivery O2 Flow Rate FiO2 01/21/18 12:00 98.0 93 18 115/72 97 98.0 01/21/18 08:00 97.4 95 18 108/74 98 97.4 01/21/18 04:00 97.2 97 20 105/72 99 97.2 01/21/18 00:00 97.8 99 20 115/76 99 97.8 01/20/18 20:00 97.7 104 20 130/64 99 97.7 01/20/18 16:11 120/69 01/20/18 16:00 97.8 90 20 111/68 98 97.8 Intake and Output 01/20/18 01/21/18 19:00 07:00 Intake Total 520 ml 540 ml Output Total 600 ml 350 ml Balance -80 ml 190 ml Intake Oral 320 ml 540 ml Other 200 ml Output Urine Total 600 ml 350 ml # Voids 3 2 # Bowel Movements 1 1 Height (Feet): 5 Height (Inches): 7.00 Weight (Pounds): 132 General Appearance: WD/WN, no apparent distress, alert, confused Sandra Sherwood M.D. January 21, 2018 15:58
[2018-01-21 16:00] VITALS: BP 101/67
[2018-01-21] MEDS: Nitroglycerin Patch 0.4mg TDERMAL SCH (16:00)
[2018-01-21 20:00] VITALS: BP 105/68
[2018-01-22] VITALS: BP 101/68
[2018-01-22 08:00] VITALS: BP 100/73
[2018-01-22] MEDS: Aspirin Baby 81mg ORAL SCH (09:00)
[2018-01-22 12:00] VITALS: BP 116/90
--- NOTE | 2018-01-22 14:54 | General Progress Note ---
Assessment/Plan Assessment/Plan 1. Acute encephalopathy with chronic dementia 2. abnormal Troponin 3. Hypernatremia, resolved 4. Abnormal LFT. 5. Hyperproteinemia. 6. Lack of capacity of making medical decisions. 7. GI and DVT prophylaxis. 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 w special education case manager Subjective ROS Limited/Unobtainable: Yes Allergies: Coded Allergies: No Known Allergies (Unverified , 01/01/18) Objective Last 24 Hour Vital Signs Date Time Temp Pulse Resp B/P (MAP) Pulse Ox O2 Delivery O2 Flow Rate FiO2 01/22/18 12:00 98.0 83 22 116/90 99 Room Air 98.0 01/22/18 08:00 97.1 89 21 100/73 97 Room Air 97.1 01/22/18 00:00 98.7 94 20 101/68 99 Room Air 98.7 01/21/18 20:00 98.6 90 19 105/68 98 98.6 01/21/18 16:00 97.0 92 18 101/67 98 Room Air 97.0 01/21/18 16:00 101/67 Intake and Output 01/21/18 01/22/18 19:00 07:00 Intake Total 800 ml Output Total 800 ml Balance 0 ml Intake Oral 800 ml Output Urine Total 800 ml # Voids 1 # Bowel Movements 1 Height (Feet): 5 Height (Inches): 7.00 Weight (Pounds): 132 General Appearance: no apparent distress Christopher Romero MD January 22, 2018 14:54
[2018-01-22 15:42] VITALS: BP 107/59
[2018-01-22] MEDS: Nitroglycerin Patch 0.4mg TDERMAL SCH (15:43)
[2018-01-22 20:00] VITALS: BP 110/78
[2018-01-23] VITALS: BP 125/81
[2018-01-23 04:00] VITALS: BP 114/80
--- NOTE | 2018-01-23 07:18 | Pulmonology Progress Note ---
Assessment/Plan Assessment/Plan 1. Acute encephalopathy with chronic dementia 2. abnormal Troponin 3. Hypernatremia, resolved 4. Abnormal LFT. 5. Hyperproteinemia. 6. Lack of capacity of making medical decisions. 7. GI and DVT prophylaxis. check labs prn fall precautions eating better dc to snf/hospice when bed available Subjective Constitutional: Reports: no symptoms HEENT: Repors: no symptoms Cardiovascular: Reports: no symptoms Gastrointestinal/Abdominal: Reports: no symptoms Genitourinary: Reports: no symptoms Allergies: Coded Allergies: No Known Allergies (Unverified , 01/01/18) Subjective doingwell no complaints tolerating po getting oob confused, but no distress no cp nv or bleeding Objective Last 24 Hour Vital Signs Date Time Temp Pulse Resp B/P (MAP) Pulse Ox O2 Delivery O2 Flow Rate FiO2 01/23/18 04:00 99.1 102 20 114/80 100 99.1 01/23/18 00:00 99.7 108 20 125/81 100 99.7 01/22/18 20:00 99.3 96 20 110/78 97 99.3 01/22/18 15:43 107/59 01/22/18 15:42 98.8 91 22 107/59 97 Room Air 98.8 01/22/18 12:00 98.0 83 22 116/90 99 Room Air 98.0 01/22/18 08:00 97.1 89 21 100/73 97 Room Air 97.1 Intake and Output 01/22/18 01/23/18 19:00 07:00 Intake Total 480 ml Balance 480 ml Intake Oral 480 ml # Voids 2 2 # Bowel Movements 1 1 General Appearance: cachetic HEENT: atraumatic, anicteric Respiratory/Chest: no respiratory distress Cardiovascular: normal rate, regular rhythm Abdomen: no organomegaly Extremities: no cyanosis Skin: no lesions Neurologic/Psychiatric: abnormal gait, alert Lymphatic: no neck adenopathy Musculoskeletal: normal muscle bulk Current Medications Medications (Trade) Dose Ordered Sig/Sherif Route PRN Reason Start Time Stop Time Status Last Admin Dose Admin Aspirin (ASA) 162 mg DAILY ORAL 01/17/18 09:00 02/01/18 08:59 01/21/18 09:00 Clotrimazole (Lotrimin) 1 applic EVERY 12 HOURS TOPIC 01/06/18 21:00 02/04/18 08:59 01/22/18 20:24 Folic Acid (Folate) 5 mg DAILY ORAL 01/17/18 09:00 02/03/18 08:59 01/21/18 09:00 Haloperidol Lactate (Haldol) 5 mg Q6H PRN IM Agitation 01/06/18 18:00 02/03/18 11:59 Lansoprazole (Prevacid) 30 mg DAILY ORAL 01/17/18 09:00 02/13/18 08:59 01/21/18 08:59 Nitroglycerin (Ntg) 1 patch Q24H TDERMAL 01/16/18 16:00 02/01/18 15:59 01/20/18 16:11 Risperidone (RisperDAL) 1 mg BEDTIME ORAL 01/16/18 21:00 02/15/18 20:59 01/22/18 20:24 CRIS TAVAREZ DO January 23, 2018 07:18
[2018-01-23 08:00] VITALS: BP 105/68
[2018-01-23] MEDS: Aspirin Baby 81mg ORAL SCH (09:00)
[2018-01-23 12:00] VITALS: BP 113/71
[2018-01-23] MEDS: Nitroglycerin Patch 0.4mg TDERMAL SCH (15:54)
[2018-01-23 16:00] VITALS: BP 116/77
[2018-01-23 20:15] VITALS: BP 121/79
--- NOTE | 2018-01-23 23:07 | General Progress Note ---
Assessment/Plan Problem List: (1) Altered mental status Assessment & Plan: the pt is refusing care appropriate for PC ICD Codes: R41.82 - Altered mental status, unspecified SNOMED: 034609702 (2) Failure to thrive in adult ICD Codes: R62.7 - Adult failure to thrive SNOMED: 902078030 Assessment/Plan dementia with behavioral dist encephalopathy not able to make decisions lacks capacity poor intake noncompliance comfort care awaiting placement Subjective Date patient seen: January 23, 2018 Neurologic/Psychiatric: Reports: anxiety, depressed, emotional problems Allergies: Coded Allergies: No Known Allergies (Unverified , 01/01/18) Subjective the pt is refusing all meds and care. the pt is disorganized and confused Objective Last 24 Hour Vital Signs Date Time Temp Pulse Resp B/P (MAP) Pulse Ox O2 Delivery O2 Flow Rate FiO2 01/23/18 20:15 97.6 104 19 121/79 99 97.6 01/23/18 16:00 98.2 95 20 116/77 95 98.2 01/23/18 12:00 97.9 83 18 113/71 98 97.9 01/23/18 08:00 98.6 17 105/68 99 98.6 01/23/18 04:00 99.1 102 20 114/80 100 99.1 01/23/18 00:00 99.7 108 20 125/81 100 99.7 Intake and Output 01/22/18 01/23/18 19:00 07:00 Intake Total 480 ml Balance 480 ml Intake Oral 480 ml # Voids 2 2 # Bowel Movements 1 1 Height (Feet): 5 Height (Inches): 7.00 Weight (Pounds): 132 Sandra Sherwood M.D. January 23, 2018 23:07
[2018-01-24 00:40] VITALS: BP 113/76
[2018-01-24 04:37] VITALS: BP 115/79
[2018-01-24 08:00] VITALS: BP 111/79
[2018-01-24] MEDS: Aspirin Baby 81mg ORAL SCH (09:00)
[2018-01-24 12:00] VITALS: BP 112/74
[2018-01-24 16:00] VITALS: BP 115/75
[2018-01-24] MEDS: Nitroglycerin Patch 0.4mg TDERMAL SCH (16:00)
--- NOTE | 2018-01-24 18:53 | Pulmonology Progress Note ---
Assessment/Plan Assessment/Plan 1. Acute encephalopathy with chronic dementia 2. abnormal Troponin 3. Hypernatremia, resolved 4. Abnormal LFT. 5. Hyperproteinemia. 6. Lack of capacity of making medical decisions. 7. GI and DVT prophylaxis. check labs prn fall precautions po on ra dc to snf/hospice when bed available Subjective Constitutional: Reports: no symptoms HEENT: Repors: no symptoms Respiratory: Reports: no symptoms Cardiovascular: Reports: no symptoms Allergies: Coded Allergies: No Known Allergies (Unverified , 01/01/18) Subjective doingwell no complaints tolerating po getting oob less confused, but no distress no cp nv or bleeding Objective Last 24 Hour Vital Signs Date Time Temp Pulse Resp B/P (MAP) Pulse Ox O2 Delivery O2 Flow Rate FiO2 01/24/18 16:00 97.5 93 20 115/75 97 Room Air 97.5 01/24/18 12:00 97.6 98 20 112/74 98 Room Air 97.6 01/24/18 08:00 98.1 96 18 111/79 100 98.1 01/24/18 04:37 98.2 100 19 115/79 98 98.2 01/24/18 00:40 98.4 101 18 113/76 99 98.4 01/23/18 20:15 97.6 104 19 121/79 99 97.6 Intake and Output 01/23/18 01/24/18 19:00 07:00 Intake Total 400 ml Balance 400 ml Intake Oral 400 ml # Voids 3 General Appearance: cachetic Respiratory/Chest: normal breath sounds, no accessory muscle use Cardiovascular: normal peripheral pulses Abdomen: soft, non tender, non distended Extremities: no clubbing Skin: no rash Neurologic/Psychiatric: alert Lymphatic: no groin adenopathy Musculoskeletal: normal muscle bulk Current Medications Medications (Trade) Dose Ordered Sig/Sherif Route PRN Reason Start Time Stop Time Status Last Admin Dose Admin Aspirin (ASA) 162 mg DAILY ORAL 01/17/18 09:00 02/01/18 08:59 01/21/18 09:00 Clotrimazole (Lotrimin) 1 applic EVERY 12 HOURS TOPIC 01/06/18 21:00 02/04/18 08:59 01/22/18 20:24 Folic Acid (Folate) 5 mg DAILY ORAL 01/17/18 09:00 02/03/18 08:59 01/21/18 09:00 Haloperidol Lactate (Haldol) 5 mg Q6H PRN IM Agitation 01/06/18 18:00 02/03/18 11:59 Lansoprazole (Prevacid) 30 mg DAILY ORAL 01/17/18 09:00 02/13/18 08:59 01/21/18 08:59 Nitroglycerin (Ntg) 1 patch Q24H TDERMAL 01/16/18 16:00 02/01/18 15:59 01/20/18 16:11 Risperidone (RisperDAL) 1 mg BEDTIME ORAL 01/16/18 21:00 02/15/18 20:59 01/23/18 20:50 CRIS TAVAREZ DO January 24, 2018 18:53
[2018-01-24 20:00] VITALS: BP 118/72
[2018-01-25] VITALS: BP 91/70
[2018-01-25 04:00] VITALS: BP 104/68
[2018-01-25 07:56] VITALS: BP 107/87
[2018-01-25] MEDS: Aspirin Baby 81mg ORAL SCH (08:39)
[2018-01-25 12:00] VITALS: BP 110/82
--- NOTE | 2018-01-25 12:54 | General Progress Note ---
Assessment/Plan Assessment/Plan 1. Acute encephalopathy with chronic dementia 2. abnormal Troponin 3. Hypernatremia, resolved 4. Abnormal LFT. 5. Hyperproteinemia. 6. Lack of capacity of making medical decisions. 7. GI and DVT prophylaxis. 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 Subjective ROS Limited/Unobtainable: Yes Allergies: Coded Allergies: No Known Allergies (Unverified , 01/01/18) Objective Last 24 Hour Vital Signs Date Time Temp Pulse Resp B/P (MAP) Pulse Ox O2 Delivery O2 Flow Rate FiO2 01/25/18 12:00 98.0 89 18 110/82 98 Room Air 98.0 01/25/18 07:56 97.9 100 19 107/87 99 Room Air 97.9 01/25/18 04:00 98.2 88 20 104/68 98 98.2 01/25/18 00:00 98.4 65 20 91/70 92 98.4 01/24/18 20:00 99.0 95 19 118/72 98 99.0 01/24/18 16:00 97.5 93 20 115/75 97 Room Air 97.5 Intake and Output 01/24/18 01/25/18 19:00 07:00 Intake Total 480 ml Balance 480 ml Intake Oral 480 ml # Voids 5 4 # Bowel Movements 2 Height (Feet): 5 Height (Inches): 7.00 Weight (Pounds): 132 Christopher Romero MD January 25, 2018 12:54
[2018-01-25 16:00] VITALS: BP 100/75
[2018-01-25] MEDS: Nitroglycerin Patch 0.4mg TDERMAL SCH (16:00)
[2018-01-25 20:00] VITALS: BP 106/69
[2018-01-26] VITALS: BP 119/74
[2018-01-26 04:00] VITALS: BP 111/74
[2018-01-26 08:00] VITALS: BP 102/68
[2018-01-26] MEDS: Aspirin Baby 81mg ORAL SCH (08:12)
[2018-01-26 11:49] VITALS: BP 99/68
--- NOTE | 2018-01-26 13:46 | General Progress Note ---
Assessment/Plan Assessment/Plan 1. Acute encephalopathy with chronic dementia 2. abnormal Troponin 3. Hypernatremia, resolved 4. Abnormal LFT. 5. Hyperproteinemia. 6. Lack of capacity of making medical decisions. 7. GI and DVT prophylaxis. 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 Subjective ROS Limited/Unobtainable: Yes Allergies: Coded Allergies: No Known Allergies (Unverified , 01/01/18) Objective Last 24 Hour Vital Signs Date Time Temp Pulse Resp B/P (MAP) Pulse Ox O2 Delivery O2 Flow Rate FiO2 01/26/18 11:49 98.4 99 16 99/68 95 Room Air 98.4 01/26/18 08:00 98.4 107 16 102/68 99 Room Air 98.4 01/26/18 04:00 98.1 92 19 111/74 98 98.1 01/26/18 00:00 97.9 96 20 119/74 98 97.9 01/25/18 20:00 98.4 81 20 106/69 100 98.4 01/25/18 16:00 98.0 76 17 100/75 99 Room Air 98.0 01/25/18 16:00 100/75 Intake and Output 01/25/18 01/26/18 19:00 07:00 Intake Total 650 ml Balance 650 ml Other 650 ml # Voids 3 3 # Bowel Movements 1 Height (Feet): 5 Height (Inches): 7.00 Weight (Pounds): 132 Christopher Romero MD January 26, 2018 13:46
[2018-01-26 16:00] VITALS: BP 115/72
[2018-01-26] MEDS: Nitroglycerin Patch 0.4mg TDERMAL SCH (17:12)
[2018-01-26 20:00] VITALS: BP 110/72
--- NOTE | 2018-01-26 23:42 | Psych Consult Progress Note ---
Psych Consult Progress Note Consult (1) Altered mental status Assessment & Plan: the pt is refusing care appropriate for PC ICD Codes: R41.82 - Altered mental status, unspecified SNOMED: 198936962 (2) Failure to thrive in adult ICD Codes: R62.7 - Adult failure to thrive SNOMED: 639049888 Assessment/Plan dementia with behavioral dist encephalopathy not able to make decisions lacks capacity poor intake noncompliance comfort care awaiting placement Vital Signs Last 24 Hour Vital Signs Date Time Temp Pulse Resp B/P (MAP) Pulse Ox O2 Delivery O2 Flow Rate FiO2 01/26/18 20:00 98.1 20 20 110/72 98 98.1 01/26/18 17:12 115/72 01/26/18 16:00 98.8 95 19 115/72 100 Room Air 98.8 01/26/18 11:49 98.4 99 16 99/68 95 Room Air 98.4 01/26/18 08:00 98.4 107 16 102/68 99 Room Air 98.4 01/26/18 04:00 98.1 92 19 111/74 98 98.1 01/26/18 00:00 97.9 96 20 119/74 98 97.9 Medications Current Medications Medications (Trade) Dose Ordered Sig/Sherif Route PRN Reason Start Time Stop Time Status Last Admin Dose Admin Aspirin (ASA) 162 mg DAILY ORAL 01/17/18 09:00 02/01/18 08:59 01/26/18 08:12 Clotrimazole (Lotrimin) 1 applic EVERY 12 HOURS TOPIC 01/06/18 21:00 02/04/18 08:59 01/26/18 20:27 Folic Acid (Folate) 5 mg DAILY ORAL 01/17/18 09:00 02/03/18 08:59 01/26/18 08:12 Haloperidol Lactate (Haldol) 5 mg Q6H PRN IM Agitation 01/06/18 18:00 02/03/18 11:59 Lansoprazole (Prevacid) 30 mg DAILY ORAL 01/17/18 09:00 02/13/18 08:59 01/26/18 08:12 Nitroglycerin (Ntg) 1 patch Q24H TDERMAL 01/16/18 16:00 02/01/18 15:59 01/26/18 17:12 Risperidone (RisperDAL) 1 mg BEDTIME ORAL 01/16/18 21:00 02/15/18 20:59 01/26/18 20:27 Problems: (1) Altered mental status Status: Chronic Assessment & Plan: the pt is refusing care appropriate for PC (2) Failure to thrive in adult Status: Acute Sandra Sherwood M.D. January 26, 2018 23:42
[2018-01-27] VITALS: BP 112/68
[2018-01-27 04:00] VITALS: BP 116/64
[2018-01-27 08:00] VITALS: BP 105/60
[2018-01-27] MEDS: Aspirin Baby 81mg ORAL SCH ×2 (08:13→08:19)
--- NOTE | 2018-01-27 08:40 | General Progress Note ---
Assessment/Plan Assessment/Plan 1. Acute encephalopathy with chronic dementia 2. abnormal Troponin 3. Hypernatremia, resolved 4. Abnormal LFT. 5. Hyperproteinemia. 6. Lack of capacity of making medical decisions. 7. GI and DVT prophylaxis. 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 Subjective ROS Limited/Unobtainable: Yes Allergies: Coded Allergies: No Known Allergies (Unverified , 01/01/18) Objective Last 24 Hour Vital Signs Date Time Temp Pulse Resp B/P (MAP) Pulse Ox O2 Delivery O2 Flow Rate FiO2 01/27/18 08:00 97.4 98 17 105/60 98 Room Air 97.4 01/27/18 04:00 98.2 101 20 116/64 96 98.2 01/27/18 00:00 98.7 69 20 112/68 98 98.7 01/26/18 20:00 98.1 20 20 110/72 98 98.1 01/26/18 17:12 115/72 01/26/18 16:00 98.8 95 19 115/72 100 Room Air 98.8 01/26/18 11:49 98.4 99 16 99/68 95 Room Air 98.4 Intake and Output 01/26/18 01/27/18 19:00 07:00 Intake Total 440 ml Output Total 3 ml Balance 437 ml Intake Oral 320 ml Other 120 ml Output Urine Total 2 ml Stool Total 1 ml # Voids 3 # Bowel Movements 1 Height (Feet): 5 Height (Inches): 7.00 Weight (Pounds): 130 Christopher Romero MD January 27, 2018 08:40
[2018-01-27 12:00] VITALS: BP 125/75
--- NOTE | 2018-01-27 12:12 | General Progress Note ---
Assessment/Plan Problem List: (1) Altered mental status Assessment & Plan: the pt is refusing care appropriate for PC ICD Codes: R41.82 - Altered mental status, unspecified SNOMED: 207836280 (2) Failure to thrive in adult ICD Codes: R62.7 - Adult failure to thrive SNOMED: 009115800 Assessment/Plan dementia with behavioral dist encephalopathy not able to make decisions lacks capacity poor intake noncompliance comfort care awaiting placement Subjective Date patient seen: January 27, 2018 Neurologic/Psychiatric: Reports: anxiety, emotional problems Allergies: Coded Allergies: No Known Allergies (Unverified , 01/01/18) Subjective the pt is refusing all meds and care however the meds were crushed and given to him. the pt is disorganized and confused. he was more agitated today and was given haldol Objective Last 24 Hour Vital Signs Date Time Temp Pulse Resp B/P (MAP) Pulse Ox O2 Delivery O2 Flow Rate FiO2 01/27/18 08:00 97.4 98 17 105/60 98 Room Air 97.4 01/27/18 04:00 98.2 101 20 116/64 96 98.2 01/27/18 00:00 98.7 69 20 112/68 98 98.7 01/26/18 20:00 98.1 20 20 110/72 98 98.1 01/26/18 17:12 115/72 01/26/18 16:00 98.8 95 19 115/72 100 Room Air 98.8 Intake and Output 01/26/18 01/27/18 19:00 07:00 Intake Total 440 ml Output Total 3 ml Balance 437 ml Intake Oral 320 ml Other 120 ml Output Urine Total 2 ml Stool Total 1 ml # Voids 3 # Bowel Movements 1 Height (Feet): 5 Height (Inches): 7.00 Weight (Pounds): 130 General Appearance: WD/WN, no apparent distress, alert, confused, agitated Sandra Sherwood M.D. January 27, 2018 12:12
[2018-01-27] MEDS: Nitroglycerin Patch 0.4mg TDERMAL SCH (16:00)
[2018-01-27 16:12] VITALS: BP 102/72
[2018-01-27 20:00] VITALS: BP 123/73
[2018-01-28] VITALS: BP 119/78
[2018-01-28 04:00] VITALS: BP 143/71
[2018-01-28 08:00] VITALS: BP 102/68
[2018-01-28] MEDS: Aspirin Baby 81mg ORAL SCH (09:00)
[2018-01-28 12:00] VITALS: BP 99/68
[2018-01-28 16:00] VITALS: BP 105/65
[2018-01-28] MEDS: Nitroglycerin Patch 0.4mg TDERMAL SCH (16:00)
--- NOTE | 2018-01-28 17:02 | General Progress Note ---
Assessment/Plan Assessment/Plan 1. Acute encephalopathy with chronic dementia 2. abnormal Troponin 3. Hypernatremia, resolved 4. Abnormal LFT. 5. Hyperproteinemia. 6. Lack of capacity of making medical decisions. 7. GI and DVT prophylaxis. not agitated prn Haldol rx refused meds at times PO variable hospice when bed available difficult placement due to insurance disc w RN Subjective Constitutional: Reports: other - general pain Allergies: Coded Allergies: No Known Allergies (Unverified , 01/01/18) Objective Last 24 Hour Vital Signs Date Time Temp Pulse Resp B/P (MAP) Pulse Ox O2 Delivery O2 Flow Rate FiO2 01/28/18 15:39 97.7 01/28/18 12:00 97.7 89 20 99/68 98 Room Air 97.7 01/28/18 08:00 97.9 90 20 102/68 100 Room Air 97.9 01/28/18 04:00 98.2 94 20 143/71 96 98.2 01/28/18 00:00 98.0 95 20 119/78 98 98.0 01/27/18 20:00 98.4 94 20 123/73 98 98.4 Intake and Output 01/27/18 01/28/18 19:00 07:00 Intake Total 240 ml 120 ml Balance 240 ml 120 ml Intake Oral 240 ml 120 ml # Voids 1 4 Height (Feet): 5 Height (Inches): 7.00 Weight (Pounds): 130 General Appearance: no apparent distress, cachetic Cardiovascular: normal rate, regular rhythm Christopher Romero MD January 28, 2018 17:02
[2018-01-28 20:00] VITALS: BP 100/66
[2018-01-29] VITALS: BP 114/69
[2018-01-29 04:00] VITALS: BP 110/72
[2018-01-29 08:00] VITALS: BP 109/75
[2018-01-29] MEDS: Aspirin Baby 81mg ORAL SCH (09:10)
[2018-01-29 12:00] VITALS: BP 105/74
--- NOTE | 2018-01-29 12:09 | General Progress Note ---
Assessment/Plan Assessment/Plan 1. Acute encephalopathy with chronic dementia 2. abnormal Troponin 3. Hypernatremia, resolved 4. Abnormal LFT. 5. Hyperproteinemia. 6. Lack of capacity of making medical decisions. 7. GI and DVT prophylaxis. 8. Severe protein calorie malnutrition. asks "what is HIV", I advised him that he is sick from this virus he denies being ill not agitated prn Haldol rx refused meds at times PO variable hospice when bed available difficult placement due to insurance disc w RN Subjective ROS Limited/Unobtainable: Yes Allergies: Coded Allergies: No Known Allergies (Unverified , 01/01/18) Objective Last 24 Hour Vital Signs Date Time Temp Pulse Resp B/P (MAP) Pulse Ox O2 Delivery O2 Flow Rate FiO2 01/29/18 08:00 97.3 109 20 109/75 96 97.3 01/29/18 04:00 98.5 95 20 110/72 98 98.5 01/29/18 00:00 98.6 96 20 114/69 100 98.6 01/28/18 20:00 98.2 93 20 100/66 100 98.2 01/28/18 16:00 97.7 91 20 105/65 100 Room Air 97.7 01/28/18 16:00 105/65 01/28/18 15:39 97.7 Intake and Output 01/28/18 01/29/18 19:00 07:00 Intake Total 200 ml 20 ml Balance 200 ml 20 ml Intake Oral 200 ml 20 ml # Voids 5 2 # Bowel Movements 1 Height (Feet): 5 Height (Inches): 7.00 Weight (Pounds): 130 General Appearance: no apparent distress, cachetic Neck: supple Cardiovascular: normal rate Christopher Romero MD January 29, 2018 12:09
[2018-01-29 16:00] VITALS: BP 103/68
[2018-01-29] MEDS: Nitroglycerin Patch 0.4mg TDERMAL SCH (16:00)
[2018-01-29 20:00] VITALS: BP 117/77
--- NOTE | 2018-01-29 22:46 | General Progress Note ---
Assessment/Plan Problem List: (1) Altered mental status Assessment & Plan: the pt is refusing care appropriate for PC ICD Codes: R41.82 - Altered mental status, unspecified SNOMED: 072584106 (2) Failure to thrive in adult ICD Codes: R62.7 - Adult failure to thrive SNOMED: 812895376 Status: stable, progressing Assessment/Plan dementia with behavioral dist encephalopathy not able to make decisions lacks capacity poor intake noncompliance comfort care awaiting placement Subjective Neurologic/Psychiatric: Reports: anxiety, emotional problems Allergies: Coded Allergies: No Known Allergies (Unverified , 01/01/18) Subjective more alert and interactive meds given with apple sauce. the pt is irritable and confused. the pt is still illogical Objective Last 24 Hour Vital Signs Date Time Temp Pulse Resp B/P (MAP) Pulse Ox O2 Delivery O2 Flow Rate FiO2 01/29/18 20:00 99.3 104 19 117/77 98 99.3 01/29/18 16:00 97.2 98 20 103/68 100 97.2 01/29/18 16:00 103/68 01/29/18 12:00 97.2 104 20 105/74 100 97.2 01/29/18 08:00 97.3 109 20 109/75 96 97.3 01/29/18 04:00 98.5 95 20 110/72 98 98.5 01/29/18 00:00 98.6 96 20 114/69 100 98.6 Intake and Output 01/28/18 01/29/18 19:00 07:00 Intake Total 200 ml 20 ml Balance 200 ml 20 ml Intake Oral 200 ml 20 ml # Voids 5 2 # Bowel Movements 1 Height (Feet): 5 Height (Inches): 7.00 Weight (Pounds): 130 General Appearance: no apparent distress, alert, confused Neurologic: depressed affect Sandra Sherwood M.D. January 29, 2018 22:46
[2018-01-30] VITALS: BP 96/71
[2018-01-30 04:00] VITALS: BP 104/65
--- NOTE | 2018-01-30 06:52 | Pulmonology Progress Note ---
Assessment/Plan Assessment/Plan 1. Acute encephalopathy with chronic dementia 2. abnormal Troponin 3. Hypernatremia, resolved 4. Abnormal LFT. 5. Hyperproteinemia. 6. Lack of capacity of making medical decisions. 7. GI and DVT prophylaxis. check labs prn fall precautions po on ra dc to snf/hospice when bed available Subjective ROS Limited/Unobtainable: Yes Constitutional: Reports: no symptoms HEENT: Repors: no symptoms Respiratory: Reports: no symptoms Cardiovascular: Reports: no symptoms Gastrointestinal/Abdominal: Reports: no symptoms Allergies: Coded Allergies: No Known Allergies (Unverified , 01/01/18) Subjective doingwell no complaints tolerating po getting oob less confused, but no distress no cp nv or bleeding Objective Last 24 Hour Vital Signs Date Time Temp Pulse Resp B/P (MAP) Pulse Ox O2 Delivery O2 Flow Rate FiO2 01/30/18 04:00 99.3 102 18 104/65 98 99.3 01/30/18 00:00 99.2 102 20 96/71 98 99.2 01/29/18 20:00 99.3 104 19 117/77 98 99.3 01/29/18 16:00 97.2 98 20 103/68 100 97.2 01/29/18 16:00 103/68 01/29/18 12:00 97.2 104 20 105/74 100 97.2 01/29/18 08:00 97.3 109 20 109/75 96 97.3 Intake and Output 01/29/18 01/30/18 19:00 07:00 Intake Total 240 ml Balance 240 ml Intake Oral 240 ml # Voids 6 General Appearance: cachetic Respiratory/Chest: lungs clear, normal breath sounds Cardiovascular: normal rate, regular rhythm Abdomen: no mass Skin: no rash, no lesions Current Medications Medications (Trade) Dose Ordered Sig/Sherif Route PRN Reason Start Time Stop Time Status Last Admin Dose Admin Acetaminophen (Tylenol) 650 mg Q4H PRN ORAL Mild Pain/Temp > 100.5 01/27/18 08:45 02/26/18 08:44 01/29/18 09:11 Aspirin (ASA) 162 mg DAILY ORAL 01/17/18 09:00 02/01/18 08:59 01/29/18 09:10 Clotrimazole (Lotrimin) 1 applic EVERY 12 HOURS TOPIC 01/06/18 21:00 02/04/18 08:59 01/29/18 21:16 Folic Acid (Folate) 5 mg DAILY ORAL 01/17/18 09:00 02/03/18 08:59 01/29/18 09:10 Haloperidol Lactate (Haldol) 5 mg Q6H PRN IM Agitation 01/06/18 18:00 02/03/18 11:59 Lansoprazole (Prevacid) 30 mg DAILY ORAL 01/17/18 09:00 02/13/18 08:59 01/29/18 09:10 Nitroglycerin (Ntg) 1 patch Q24H TDERMAL 01/16/18 16:00 02/01/18 15:59 01/26/18 17:12 Risperidone (RisperDAL) 1 mg BEDTIME ORAL 01/16/18 21:00 02/15/18 20:59 01/29/18 21:15 CRIS TAVAREZ DO January 30, 2018 06:51
[2018-01-30 08:00] VITALS: BP 107/74
[2018-01-30] MEDS: Aspirin Baby 81mg ORAL SCH (08:19)
[2018-01-30 11:45] VITALS: BP 109/76
[2018-01-30 16:00] VITALS: BP 109/76
[2018-01-30] MEDS: Nitroglycerin Patch 0.4mg TDERMAL SCH (16:00)
[2018-01-30 20:00] VITALS: BP 100/64
[2018-01-31] VITALS: BP 97/65
[2018-01-31 04:00] VITALS: BP 98/63
--- NOTE | 2018-01-31 06:41 | Pulmonology Progress Note ---
Assessment/Plan Assessment/Plan 1. Acute encephalopathy with chronic dementia 2. abnormal Troponin 3. Hypernatremia, resolved 4. Abnormal LFT. 5. Hyperproteinemia. 6. Lack of capacity of making medical decisions. 7. GI and DVT prophylaxis. check labs prn fall precautions po on ra dc to snf/hospice when bed available Subjective Constitutional: Reports: no symptoms HEENT: Repors: no symptoms Respiratory: Reports: no symptoms Gastrointestinal/Abdominal: Reports: no symptoms Allergies: Coded Allergies: No Known Allergies (Unverified , 01/01/18) Subjective doingwell no complaints tolerating po getting oob less confused, but no distress no cp nv or bleeding Objective Last 24 Hour Vital Signs Date Time Temp Pulse Resp B/P (MAP) Pulse Ox O2 Delivery O2 Flow Rate FiO2 01/31/18 04:00 98.5 111 18 98/63 100 98.5 01/31/18 00:00 114 16 97/65 98 01/30/18 20:00 Room Air 01/30/18 20:00 97.0 112 20 100/64 96 97.0 01/30/18 16:00 109/76 01/30/18 16:00 98.2 92 20 109/76 96 98.2 01/30/18 11:45 97.6 99 19 109/76 99 97.6 01/30/18 08:00 97.9 104 19 107/74 98 97.9 Intake and Output 01/30/18 01/31/18 19:00 07:00 Intake Total 365 ml Balance 365 ml Intake Oral 365 ml # Voids 3 General Appearance: cachetic Respiratory/Chest: lungs clear Cardiovascular: normal rate, regular rhythm Abdomen: no organomegaly Extremities: no cyanosis Skin: no rash Neurologic/Psychiatric: alert, responsive Lymphatic: no neck adenopathy Musculoskeletal: normal muscle bulk Current Medications Medications (Trade) Dose Ordered Sig/Sherif Route PRN Reason Start Time Stop Time Status Last Admin Dose Admin Acetaminophen (Tylenol) 650 mg Q4H PRN ORAL Mild Pain/Temp > 100.5 01/27/18 08:45 02/26/18 08:44 01/29/18 09:11 Aspirin (ASA) 162 mg DAILY ORAL 01/17/18 09:00 02/01/18 08:59 01/30/18 08:19 Clotrimazole (Lotrimin) 1 applic EVERY 12 HOURS TOPIC 01/06/18 21:00 02/04/18 08:59 01/30/18 20:39 Folic Acid (Folate) 5 mg DAILY ORAL 01/17/18 09:00 02/03/18 08:59 01/30/18 08:19 Haloperidol Lactate (Haldol) 5 mg Q6H PRN IM Agitation 01/06/18 18:00 02/03/18 11:59 Lansoprazole (Prevacid) 30 mg DAILY ORAL 01/17/18 09:00 02/13/18 08:59 01/30/18 08:19 Nitroglycerin (Ntg) 1 patch Q24H TDERMAL 01/16/18 16:00 02/01/18 15:59 01/26/18 17:12 Risperidone (RisperDAL) 1 mg BEDTIME ORAL 01/16/18 21:00 02/15/18 20:59 01/30/18 20:39 CRIS TAVAREZ DO January 31, 2018 06:41
[2018-01-31 08:00] VITALS: BP 104/71
[2018-01-31] MEDS: Aspirin Baby 81mg ORAL SCH (08:22)
--- NOTE | 2018-01-31 11:19 | Consultation ---
History of Present Illness General Date patient seen: January 31, 2018 Chief Complaint: Altered Level of Consciousness Reason for Consultation: wound care Present Illness HPI 73M with multiple medical comorbidities presented with altered mental status. upon admission noted to have a sacral decubitus ulcer and right heel ulcer. patient non compliant with care instructions and continues to reside on sacral ulcer. now has open stage IV sacral ulcer. surgery called to evaluate wounds and assist with care and management. patient seen, chart reviewed, patient examined. Allergies: Coded Allergies: No Known Allergies (Unverified , 01/01/18) Patient History Limited by: medical condition History Provided By: Medical Record, PMD Healthcare decision maker Resuscitation status Full Code Advanced Directive on File Past Medical/Surgical History Past Medical/Surgical History: (1) Pressure ulcer, heel, right, unstageable (2) Sacral decubitus ulcer, stage IV (3) Dehydration (4) Hypernatremia (5) Failure to thrive in adult (6) Anemia (7) Elevated troponin I level (8) Altered mental status (9) Pressure ulcer Review of Systems ROS Narrative cannot obtain given patients medical condition Physical Exam General Appearance: no apparent distress HEENT: normocephalic, mucous membranes moist Neck: normal inspection Respiratory/Chest: lungs clear, normal breath sounds, no respiratory distress, no accessory muscle use Cardiovascular/Chest: normal rate Abdomen: soft, no organomegaly, no mass Extremities: other - right heel unstageable pressure ulcer with dry gangrene. Skin Exam: normal pigmentation Neurologic: alert Last 24 Hour Vital Signs Date Time Temp Pulse Resp B/P (MAP) Pulse Ox O2 Delivery O2 Flow Rate FiO2 01/31/18 08:00 98.8 100 21 104/71 96 Room Air 98.8 01/31/18 04:00 98.5 111 18 98/63 100 98.5 01/31/18 00:00 114 16 97/65 98 01/30/18 20:00 Room Air 01/30/18 20:00 97.0 112 20 100/64 96 97.0 01/30/18 16:00 109/76 01/30/18 16:00 98.2 92 20 109/76 96 98.2 01/30/18 11:45 97.6 99 19 109/76 99 97.6 Intake and Output 01/30/18 01/31/18 19:00 07:00 Intake Total 365 ml Balance 365 ml Intake Oral 365 ml # Voids 3 Height (Feet): 5 Height (Inches): 7.00 Weight (Pounds): 130 Medications Current Medications Medications (Trade) Dose Ordered Sig/Sherif Route PRN Reason Start Time Stop Time Status Last Admin Dose Admin Acetaminophen (Tylenol) 650 mg Q4H PRN ORAL Mild Pain/Temp > 100.5 01/27/18 08:45 02/26/18 08:44 01/29/18 09:11 Aspirin (ASA) 162 mg DAILY ORAL 01/17/18 09:00 02/01/18 08:59 01/30/18 08:19 Clotrimazole (Lotrimin) 1 applic EVERY 12 HOURS TOPIC 01/06/18 21:00 02/04/18 08:59 01/31/18 08:21 Folic Acid (Folate) 5 mg DAILY ORAL 01/17/18 09:00 02/03/18 08:59 01/30/18 08:19 Haloperidol Lactate (Haldol) 5 mg Q6H PRN IM Agitation 01/06/18 18:00 02/03/18 11:59 Lansoprazole (Prevacid) 30 mg DAILY ORAL 01/17/18 09:00 02/13/18 08:59 01/30/18 08:19 Nitroglycerin (Ntg) 1 patch Q24H TDERMAL 01/16/18 16:00 02/01/18 15:59 01/26/18 17:12 Risperidone (RisperDAL) 1 mg BEDTIME ORAL 01/16/18 21:00 02/15/18 20:59 01/30/18 20:39 Assessment/Plan Problem List: (1) Sacral decubitus ulcer, stage IV Assessment & Plan: unfortunately patient not compliant with care and will not remain off wound. prefers to lay on back which keeps pressure on wound packing and dressing with gauze TID turn patient q2hrs air soft mattress keep pressure off wound as much as possible. ICD Codes: L89.154 - Pressure ulcer of sacral region, stage 4 SNOMED: 775922634, 797025645 (2) Pressure ulcer, heel, right, unstageable Assessment & Plan: no acute intervention necessary. keep pressure off wound will monitor ICD Codes: L89.610 - Pressure ulcer of right heel, unstageable SNOMED: 017088440 Status: stable JohnathonjahCurtis January 31, 2018 11:19
[2018-01-31 12:00] VITALS: BP 91/68
[2018-01-31] MEDS: Nitroglycerin Patch 0.4mg TDERMAL SCH (16:00)
[2018-01-31 16:07] VITALS: BP 109/77
[2018-01-31 20:00] VITALS: BP 112/71
[2018-02-01] VITALS: BP 104/62
[2018-02-01 04:00] VITALS: BP 99/61
[2018-02-01 08:00] VITALS: BP 97/63
--- NOTE | 2018-02-01 11:08 | General Progress Note ---
Assessment/Plan Assessment/Plan 1. Acute encephalopathy with chronic dementia 2. abnormal Troponin 3. Hypernatremia, resolved 4. Abnormal LFT. 5. Hyperproteinemia. 6. Lack of capacity of making medical decisions. 7. GI and DVT prophylaxis. 8. Severe protein calorie malnutrition. 9. Stage 4 sacral ulcer, R heel ulcer pressure sores progressing as he is not willing to move off them surgical consult appreciated PO poor refused meds at times hospice when bed available difficult placement due to insurance disc w RN Subjective ROS Limited/Unobtainable: Yes Allergies: Coded Allergies: No Known Allergies (Unverified , 01/01/18) Objective Last 24 Hour Vital Signs Date Time Temp Pulse Resp B/P (MAP) Pulse Ox O2 Delivery O2 Flow Rate FiO2 02/01/18 08:00 98.2 96 20 97/63 98 Room Air 98.2 02/01/18 04:00 98.9 96 19 99/61 98 98.9 02/01/18 00:00 99.1 90 19 104/62 97 99.1 01/31/18 20:00 98.7 91 19 112/71 98 98.7 01/31/18 16:07 97.1 66 20 109/77 97 Room Air 97.1 01/31/18 16:00 109/77 01/31/18 12:00 97.4 108 19 91/68 97 Room Air 97.4 Intake and Output 01/31/18 02/01/18 19:00 07:00 Intake Total 240 ml Balance 240 ml Intake Oral 240 ml # Voids 3 3 Height (Feet): 5 Height (Inches): 7.00 Weight (Pounds): 130 General Appearance: no apparent distress, cachetic Christopher Romero MD February 01, 2018 11:08
[2018-02-01 12:00] VITALS: BP 92/63
[2018-02-01 16:00] VITALS: BP 94/64
[2018-02-01 20:56] VITALS: BP 94/60
[2018-02-02] VITALS (7 sets, daily range): BP systolic 85–124; BP diastolic 58–85
--- NOTE | 2018-02-02 11:37 | General Progress Note ---
Assessment/Plan Assessment/Plan 1. Acute encephalopathy with chronic dementia 2. abnormal Troponin 3. Hypernatremia, resolved 4. Abnormal LFT. 5. Hyperproteinemia. 6. Lack of capacity of making medical decisions. 7. GI and DVT prophylaxis. 8. Severe protein calorie malnutrition. 9. Stage 4 sacral ulcer, R heel ulcer pressure sores progressing as he is not willing to move off them T to 100 no localizing signs or symptoms check labs and CXR refused meds at times hospice when bed available difficult placement due to insurance disc w RN Subjective ROS Limited/Unobtainable: Yes Allergies: Coded Allergies: No Known Allergies (Unverified , 01/01/18) Objective Last 24 Hour Vital Signs Date Time Temp Pulse Resp B/P (MAP) Pulse Ox O2 Delivery O2 Flow Rate FiO2 02/02/18 08:00 99.2 110 93/62 99.2 02/02/18 04:34 98.9 130 124/85 98.9 02/02/18 04:19 100.0 135 19 85/58 98 100.0 02/02/18 00:34 98.8 91 18 91/58 96 98.8 02/01/18 20:56 99.2 100 19 94/60 97 99.2 02/01/18 16:00 97.7 94 20 94/64 99 Room Air 97.7 02/01/18 12:00 97.7 97 20 92/63 100 Room Air 97.7 Intake and Output 02/01/18 02/02/18 19:00 07:00 Intake Total 240 ml 360 ml Balance 240 ml 360 ml Intake Oral 240 ml 360 ml # Voids 6 3 Height (Feet): 5 Height (Inches): 7.00 Weight (Pounds): 130 General Appearance: no apparent distress, cachetic Neck: supple Cardiovascular: tachycardia Respiratory/Chest: lungs clear Abdomen: non tender, no organomegaly Neurologic: disoriented Christopher Romero MD February 02, 2018 11:37
[2018-02-02 12:44] LABS: BASOPHILS % (AUTO) 0.4 % (0.0-2.0); EOSINOPHILS % (AUTO) 0.7 % (0.0-3.0); HEMATOCRIT 31.1 % (42.0-52.0); HEMOGLOBIN 10.7 G/DL (14.2-18.0); LYMPHOCYTES % (AUTO) 8.6 % (20.0-45.0); MEAN CORPUSCULAR VOLUME 90 FL (80-99); NEUTROPHILS % (AUTO) 77.3 % (45.0-75.0); PLATELET COUNT 255 K/UL (150-450); RED BLOOD COUNT 3.46 M/UL (4.70-6.10); WHITE BLOOD COUNT 7.6 K/UL (4.8-10.8)
[2018-02-02 13:11] LABS: ALANINE AMINOTRANSFERASE 21 U/L (12-78); ALBUMIN/GLOBULIN RATIO 0.3 (1.0-2.7); ALKALINE PHOSPHATASE 56 U/L (46-116); ANION GAP 9 mmol/L (5-15); ASPARTATE AMINO TRANSFERASE 32 U/L (15-37); BILIRUBIN,TOTAL 0.4 MG/DL (0.2-1.0); BLOOD UREA NITROGEN 24 mg/dL (7-18); CALCIUM 8.9 MG/DL (8.5-10.1); CARBON DIOXIDE 25 MMOL/L (21-32); CHLORIDE 102 MMOL/L (98-107); CREATININE 0.8 MG/DL (0.55-1.30); POTASSIUM 3.2 MMOL/L (3.5-5.1); SODIUM 136 MMOL/L (136-145)
--- NOTE | 2018-02-02 14:37 | Diagnostic Imaging Report ---
Indication: Cough Comparison: 01/01/2018 A single view chest radiograph was obtained. Findings: The lungs are clear. Heart size is normal. The aorta is ectatic. Bones are osteopenic. IMPRESSION: No acute disease
--- NOTE | 2018-02-02 15:45 | General Progress Note ---
Assessment/Plan Problem List: (1) Altered mental status Assessment & Plan: the pt is refusing care appropriate for PC ICD Codes: R41.82 - Altered mental status, unspecified SNOMED: 311141640 (2) Failure to thrive in adult ICD Codes: R62.7 - Adult failure to thrive SNOMED: 658355021 Assessment/Plan dementia with behavioral dist encephalopathy not able to make decisions lacks capacity poor intake noncompliance comfort care awaiting placement Subjective Date patient seen: February 02, 2018 Neurologic/Psychiatric: Reports: anxiety, depressed, emotional problems Allergies: Coded Allergies: No Known Allergies (Unverified , 01/01/18) Subjective the pt is irritable and confused. the pt is still illogical Objective Last 24 Hour Vital Signs Date Time Temp Pulse Resp B/P (MAP) Pulse Ox O2 Delivery O2 Flow Rate FiO2 02/02/18 12:00 98.0 98 91/59 98.0 02/02/18 08:00 99.2 110 93/62 99.2 02/02/18 04:34 98.9 130 124/85 98.9 02/02/18 04:19 100.0 135 19 85/58 98 100.0 02/02/18 00:34 98.8 91 18 91/58 96 98.8 02/01/18 20:56 99.2 100 19 94/60 97 99.2 02/01/18 16:00 97.7 94 20 94/64 99 Room Air 97.7 Intake and Output 02/01/18 02/02/18 19:00 07:00 Intake Total 240 ml 360 ml Balance 240 ml 360 ml Intake Oral 240 ml 360 ml # Voids 6 3 Laboratory Tests 02/02/18 12:30: White Blood Count [Pending], Red Blood Count 3.46L, Hemoglobin 10.7L, Hematocrit 31.1L, Mean Corpuscular Volume 90, Mean Corpuscular Hemoglobin 31.0, Mean Corpuscular Hemoglobin Concent 34.5, Red Cell Distribution Width 13.0, Platelet Count 255, Mean Platelet Volume 7.0, Neutrophils (%) (Auto) 77.3H, Lymphocytes (%) (Auto) 8.6L, Monocytes (%) (Auto) 13.0H, Eosinophils (%) (Auto) 0.7, Basophils (%) (Auto) 0.4, Lymphocytes [Pending], Sodium Level 136, Potassium Level 3.2L, Chloride Level 102, Carbon Dioxide Level 25, Anion Gap 9, Blood Urea Nitrogen 24H, Creatinine 0.8, Estimat Glomerular Filtration Rate , Glucose Level 91, Calcium Level 8.9, Total Bilirubin 0.4, Aspartate Amino Transf (AST/SGOT) 32, Alanine Aminotransferase (ALT/SGPT) 21, Alkaline Phosphatase 56, Total Protein 9.4H, Albumin 2.0L, Globulin 7.4, Albumin/ Globulin Ratio 0.3L, Percent CD3 Cells [Pending], Absolute CD3 Count [Pending], Percent CD4 Cells [Pending], Absolute CD4 Count [Pending], T-Lymphocyte CD4/CD8 Ratio [Pending], Percent CD8 Cells [Pending], Absolute CD8 Count [Pending], HIV- 1 RNA (PCR) log10 Value [Pending], HIV-1 RNA Ultraquantitative (PCR) [Pending] Height (Feet): 5 Height (Inches): 7.00 Weight (Pounds): 130 Sandra Sherwood M.D. February 02, 2018 15:45
[2018-02-03] VITALS: BP 102/69
[2018-02-03 01:32] LABS: APPEARANCE,URINE CLOUDY; BILIRUBIN, URINE NEGATIVE (NEGATIVE); GLUCOSE, URINE (UA) NEGATIVE (NEGATIVE); KETONES,URINE 3+ (NEGATIVE); LEUKOCYTE ESTERASE ,URINE 3+ (NEGATIVE); NITRITE,URINE NEGATIVE (NEGATIVE); PH,URINE 8 (4.5-8.0); PROTEIN,URINE 3+ (NEGATIVE); UROBILINOGEN,URINE 1 MG/DL (0.0-1.0)
[2018-02-03 01:34] LABS: COLOR,URINE YELLOW
[2018-02-03 04:00] VITALS: BP 108/74
[2018-02-03 08:00] VITALS: BP 110/74
[2018-02-03 12:00] VITALS: BP 108/72
--- NOTE | 2018-02-03 12:40 | General Progress Note ---
Assessment/Plan Assessment/Plan 1. Acute encephalopathy with chronic dementia 2. abnormal Troponin 3. Hypernatremia, resolved 4. Abnormal LFT. 5. Hyperproteinemia. 6. Lack of capacity of making medical decisions. 7. GI and DVT prophylaxis. 8. Severe protein calorie malnutrition. 9. Stage 4 sacral ulcer, R heel ulcer 10. UTI pressure sores T normal labs and CXR w dx UTI refused meds at times; poor intake started abx, K hospice when bed available difficult placement due to insurance disc w RN Subjective ROS Limited/Unobtainable: Yes Allergies: Coded Allergies: No Known Allergies (Unverified , 01/01/18) Objective Last 24 Hour Vital Signs Date Time Temp Pulse Resp B/P (MAP) Pulse Ox O2 Delivery O2 Flow Rate FiO2 02/03/18 12:00 98.0 99 18 108/72 97 98.0 02/03/18 08:00 98.7 98 20 110/74 96 98.7 02/03/18 04:00 99.2 117 19 108/74 100 99.2 02/03/18 00:00 98.2 112 20 102/69 98 98.2 02/02/18 20:00 98.6 111 18 99/67 100 98.6 02/02/18 16:00 97.5 84 92/61 97.5 Intake and Output 02/02/18 02/03/18 19:00 07:00 Intake Total 140 ml Balance 140 ml Intake Oral 140 ml # Voids 6 4 # Bowel Movements 1 1 Laboratory Tests 02/03/18 01:05: Urine Color Yellow, Urine Appearance Cloudy, Urine pH 8, Urine Specific [place] 1.015, Urine Protein 3+H, Urine Glucose (UA) Negative, Urine Ketones 3+H, Urine Occult Blood 5+H, Urine Nitrite Negative, Urine Bilirubin Negative, Urine Urobilinogen 1H, Urine Leukocyte Esterase 3+H, Urine RBC TntcH, Urine WBC TntcH , Urine Squamous Epithelial Cells None, Urine Calcium Oxalate Crystals Many, Urine Bacteria ManyH Height (Feet): 5 Height (Inches): 7.00 Weight (Pounds): 138 General Appearance: no apparent distress, cachetic Christopher Romero MD February 03, 2018 12:40
[2018-02-03 16:00] VITALS: BP 108/76
[2018-02-03] MEDS ORDERED: ACETAMINOPHEN325 M1 ORAL (17:55)
[2018-02-03] MEDS ORDERED: CEFTRIAXONE1 G1 IM (17:56)
[2018-02-03] MEDS ORDERED: CEFTRIAXONE250 MG IJ (17:56)
[2018-02-03] MEDS ORDERED: CLOTRIMAZOLE15 GM TOPIC (17:57)
[2018-02-03] MEDS ORDERED: POTASSIUM CHLO20 ME2 ORAL (17:58)
[2018-02-03] MEDS ORDERED: LANSOPRAZOLE30 MG ORAL (17:58)
[2018-02-03] MEDS ORDERED: RISPERDAL1 MG PO (17:59)
[2018-02-03 20:00] VITALS: BP 123/71
--- NOTE | 2018-02-03 22:34 | General Progress Note ---
Assessment/Plan Problem List: (1) Altered mental status Assessment & Plan: the pt is refusing care appropriate for PC ICD Codes: R41.82 - Altered mental status, unspecified SNOMED: 602048411 (2) Failure to thrive in adult ICD Codes: R62.7 - Adult failure to thrive SNOMED: 046961296 Assessment/Plan dementia with behavioral dist encephalopathy not able to make decisions lacks capacity poor intake noncompliance comfort care awaiting placement Subjective Neurologic/Psychiatric: Reports: anxiety, depressed, emotional problems Allergies: Coded Allergies: No Known Allergies (Unverified , 01/01/18) Subjective the pt is irritable and confused. the pt is still illogical Objective Last 24 Hour Vital Signs Date Time Temp Pulse Resp B/P (MAP) Pulse Ox O2 Delivery O2 Flow Rate FiO2 02/03/18 20:00 99.3 120 20 123/71 99 Room Air 99.3 02/03/18 16:00 98.3 112 20 108/76 97 98.3 02/03/18 12:00 98.0 99 18 108/72 97 98.0 02/03/18 08:00 98.7 98 20 110/74 96 98.7 02/03/18 04:00 99.2 117 19 108/74 100 99.2 02/03/18 00:00 98.2 112 20 102/69 98 98.2 Intake and Output 02/02/18 02/03/18 19:00 07:00 Intake Total 140 ml Balance 140 ml Intake Oral 140 ml # Voids 6 4 # Bowel Movements 1 1 Laboratory Tests 02/03/18 01:05: Urine Color Yellow, Urine Appearance Cloudy, Urine pH 8, Urine Specific [place] 1.015, Urine Protein 3+H, Urine Glucose (UA) Negative, Urine Ketones 3+H, Urine Occult Blood 5+H, Urine Nitrite Negative, Urine Bilirubin Negative, Urine Urobilinogen 1H, Urine Leukocyte Esterase 3+H, Urine RBC TntcH, Urine WBC TntcH , Urine Squamous Epithelial Cells None, Urine Calcium Oxalate Crystals Many, Urine Bacteria ManyH Height (Feet): 5 Height (Inches): 7.00 Weight (Pounds): 138 Sandra Sherwood M.D. February 03, 2018 22:33
--- NOTE | 2018-02-04 19:28 | Discharge Summary ---
Discharge Summary Discharge Summary _ DATE OF ADMISSION: 01/01/2018 DATE OF DISCHARGE: 01/17/2018 BRIEF HOSPITAL COURSE: Patient is an unfortunate 73-year-old male, who was transferred to ED as roommate called 911 due to change in level of consciousness. On evaluation at ED. Patient was very dehydrated and tachycardic. He was found to be hypernatremic and azotemic. He was gravely disabled and unable to take care of himself. He was cachectic and frail. CT of the head was negative. He had elevated troponin, cardiac evaluation was done, elevated troponin was due to renal failure. Echocardiogram with ejection fraction of 65%. There was no chest pain. He also came in with azotemia and was given IV fluids. He underwent psychiatric evaluation. He was diagnosed to lack the capacity to make medical decisions. He was started on risperidone and Haldol. Social service was called to locate patient's family. Bioethics meeting was held on 01/06/2018. The committee met with patient's close friend/housemate. Patient had deteriorated and had refused care. 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 Patient' s best interest was to be placed on DO NOT RESUSCITATE and DO NOT INTUBATE and to be referred to hospice/[facility]term [place] [facility] care. He had multiple decubitus ulcer, he was given wound care, however, patient is noncompliant with care instructions. Urine with growth of gram-positive organisms. He was a difficult placement. He was eventually discharged to [facility]. FINAL DIAGNOSES: Acute encephalopathy with chronic dementia Abnormal troponin Hypernatremia resolved Abnormal LFT Hyperproteinemia Lack of capacity in making medical decisions Severe protein calorie malnutrition Stage IV sacral ulcer and right heel ulcer present on admission Urinary tract infection Failure to thrive DISPOSITION: Patient was discharge to assisted living with hospice. DISCHARGE MEDICATIONS: Refer to Discharge Medication List. I have been assigned to dictate discharge summary on this account, and I was not involved in the patient's management. Sherlyn Lofton NP February 04, 2018 19:28
== END 2018-02-03 20:30 | disposition home or self-care (01) | DRG 640 ==
LOC: EDBD 20:18 → EMR 21:16 → 2E 22:45 → EDBEDREQ 23:04 → 4E 01-06 15:38
DX: E87.0 Hyperosmolality and hypernatremia (principal); L89.154 Pressure ulcer of sacral region, stage 4; G93.40 Encephalopathy, unspecified; E43 Unspecified severe protein-calorie malnutrition; I45.2 Bifascicular block; F03.91 Unspecified dementia, unspecified severity, with behavioral disturbance; N39.0 Urinary tract infection, site not specified; E86.0 Dehydration; E88.09 Other disorders of plasma-protein metabolism, not elsewhere classified; R62.7 Adult failure to thrive; D64.9 Anemia, unspecified; R00.0 Tachycardia, unspecified; L89.610 Pressure ulcer of right heel, unstageable; R94.5 Abnormal results of liver function studies; Z66 Do not resuscitate; Z51.5 Encounter for palliative care
CPT/HCPCS: 36415; 70450; 71045; 76700; 80053; 80061; 81003; 82140; 82248; 82550; 82553; 82607; 82728; 82746; 82977; 83036; 83540; 83550; 83735; 83880; 84100; 84300; 84484; 84550; 85007; 85025; 85610; 85730; 86140; 86360; 87081; 87086; 87181; 87536; 93005; 93306; 99285; J8499